=== PATIENT | male | born 1960 | race Caucasian/White ===

== ENCOUNTER 2019-09-15 11:18 | Inpatient (IN) | payer OTHER ==
[~2019-09-15] VITALS: Ht 182.9 cm; Wt 108.2 kg
[2019-09-15 10:50] VITALS: BP 161/101
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
[2019-09-15] MEDS ORDERED: LAC-HYDRIN FIV226 GM TOP (16:07)
[2019-09-15] MEDS ORDERED: LIPITOR10 MG PO (16:11)
[2019-09-15] MEDS ORDERED: CARVEDILOL12.5 MG PO (16:14)
[2019-09-15] MEDS ORDERED: FLEXERIL PO (16:18)
[2019-09-15] MEDS ORDERED: DIVALPROEX SOD250 M3 PO ×2 (16:21→16:23)
[2019-09-15] MEDS ORDERED: ARICEPT10 M1 PO (16:24)
[2019-09-15] MEDS ORDERED: LISINOPRIL2.5 M1 PO (16:27)
[2019-09-15] MEDS ORDERED: SEROQUEL 25 MG25 MG PO (16:29)
[2019-09-15] MEDS ORDERED: NAMENDA 10 MG T10 MG PO (16:31)
[2019-09-15] MEDS ORDERED: FISH OIL 1,001000 M3 PO (16:33)
[2019-09-15] MEDS ORDERED: THERA TABLET400 MCG PO (16:37)
[2019-09-15] MEDS ORDERED: TRAMADOL 50 MG50 MG PO (16:39)
[2019-09-15] MEDS ORDERED: VITAMIN B-1100 M2 PO ×2 (16:41→16:43)
[2019-09-15] MEDS ORDERED: VITAMIN C500 M1 PO (16:44)
[2019-09-15] MEDS ORDERED: ACETAMINOPHEN-1 EAC2 PO (16:48)
--- NOTE | 2019-09-15 16:48 | NUR ---
Sw attempted to meet with this pt while he was in the group room. Pt is not av very good historian, and unable to answer for his intake assessment.
[2019-09-15] MEDS ORDERED: VITAMIN B-121000 MC2 PO (17:08)
[2019-09-15 18:10] VITALS: BP 194/138
[2019-09-15 18:15] VITALS: BP 163/102
[2019-09-15 18:25] VITALS: BP 158/110
[2019-09-15 20:33] VITALS: BP 153/110
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
[2019-09-16 07:12] VITALS: BP 146/86
[2019-09-16 11:36] VITALS: BP 146/86
--- NOTE | 2019-09-16 11:50 | NUR ---
ASSUMED CARE AT 0700 THIS MORNING. HE IS IRRITABLE, CONTINUALLY LOOKING FOR HIS MOTHER, WANTED TO "GET THINGS DONE" ON THE OUTSIDE. SHE CONTINUALLY QUESTIONS WHAT IS GOING ON. SISTER CALLED AND WANTED TO KNOW HOW PT. IS DOING. SHE PROVIDED MOTHERS PHONE NUMBER. HE IS NOT ACCEPTING ANSWERS FROM STAFF. HE IS EATING WELL, TOOK HIS MEDICATIONS WITHOUT DIFFICULTIES (WHOLE).
--- NOTE | 2019-09-16 14:19 | NUR ---
LIZZ called Richy Harris pt's sister and DPOA [phone] and left a VM. LIZZ completed the intake assesmnet and TP with chart review
--- NOTE | 2019-09-16 16:32 | NUR ---
LIZZ spoke with pt's sister Shannan [phone] and she reported that [facility]. She reported that pt cycles through his behaviors every 3-6 months, this includes aggression and outbursts. Shannan mentioned that he sees Dr Cole from and Dr Danielle at [facility]. And there is a tele health is 09/21 at 9:45 am.
[2019-09-16 19:43] VITALS: BP 157/83
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
--- NOTE | 2019-09-17 03:09 | NUR ---
ASSUMED CARE ON 09/16/19 @ 19:15, AMBULATES INDEPENDENTLY WITH A STEADY GAIT. SPOKE TO ON THE PHONE AND HE WAS YELLING AT HER. CONFUSED AND NEEDS DIRECTION TO ACOMPLISH BASIC CARES. URINATES ON THE FLOOR IN PUBLIC AREAS. OCCASIONALLY INCONTINENT. HEART RATE AND RHYTHM REGULAR. LUNGS CLEAR TO AUSCULTATION, ABD SOUNDS NORMOACTIVE X 4 Q OVER A LARGE ROUND ABDOMEN. IN BED AFTER 2300, BED IN LOW POSITION, RESPIRATION EVEN AND UNLABORED. NO DISTRESS NOTED, WILL CONTINUE TO MONITOR Q 12 MIN FOR PT SAFETY.
[2019-09-17 05:32] VITALS: BP 157/83
[2019-09-17 08:00] VITALS: BP 112/79; BP 125/70
[2019-09-17 11:11] VITALS: BP 157/83
--- NOTE | 2019-09-17 11:18 | NUR ---
ASSUMED CARE AT 0700 THIS MORNING. PT. AWAKE, ALERT AND ON THE UNIT FOR MEALS AND FOR MOST OF THE DAY. PT. TOOK HIS MORNING MEDICATIONS WITHOUT PROBLEMS NOTED. HE HAS BEEN PLEASANT AND COOPERATIVE WITH THIS STAFF. HE CONTINUES TO HAVE A FLAT AFFECT BUT HE IS CALM. HIS SISTER CALLED AND INQUIRED TO HOW THE PT. IS DOING. HE WAS INFORMED OF THE SAME.
[2019-09-17 19:00] VITALS: BP 125/73
--- NOTE | 2019-09-17 19:18 | NUR ---
Care of patient assumed at 1915. Patient is in the day room sitting at a table. Oriented to self only. Doesn't know where he is, what day it is, or why he is here. Thinks that everything was just taken away from him and he was locked up for no reason. Very tangetial. Seems to jump from topic to topic but frequently returns to his mom not being able to see him because of COVID precautions. Very diorganized. HS, LS, BS WNL. Denies pain. Denies SI/HI. Compliant with HS meds. Requires repeated orientation to his room in order to find his bed.
[2019-09-18 07:40] VITALS: BP 113/74
--- NOTE | 2019-09-18 07:47 | NUR ---
ASSUMED CARE AT 0800 THIS MORNING. HE IS UP, DRESSED AND IN THE DINING ROOM. HE IS PLEASANT AND COOPERATIVE THIS MORNING AT THIS POINT.
[2019-09-18 13:32] VITALS: BP 113/74
[2019-09-18 19:53] VITALS: BP 122/93
[2019-09-18 22:33] VITALS: BP 122/93
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
[2019-09-19 07:38] VITALS: BP 114/76
--- NOTE | 2019-09-19 16:55 | NUR ---
DYSPHORIC MOOD UPON INITAL APPROACH THIS AN-ANGRY FACIAL EXPRESSION AND BRIEF,ABRUPT VERBAL RESPONSES. DID TAKE AM MEDICATIONMS WITHOUT RESISTANCE-SITS APART FROM [facility]ERS AND NO OTED SOCIAL INTERACTION THROUGHOUT AM. MORE VERBAL IN PM AFTER STAFF ASSSITED WITH SHOWER-NOTED TO HAVE WORD FINDING DIFFICULTY-EXPRESSIVE APHASIA -CONVERSATION AFTER SHOWER AND SHAVE WAS FOCUSED ON MOTHER AND HOW SHE HAS "JUST LEFT ME" ORIENTED TO PERSON,NO TO DATE/PLACE. GAIT STEADY WITHOUT ASSISTIVE DEVICES. BP CHECKED MANUALLY AT 1630 138/88
--- NOTE | 2019-09-19 17:12 | NUR ---
LIZZ left ms with [facility] informing of plan to discharge patient on 09/20 or 09/21. LIZZ asked for a return call to LIZZ Davis to further discuss dc plan.
[2019-09-19 19:37] VITALS: BP 98/77
[2019-09-19 20:00] VITALS: BP 98/77
--- NOTE | 2019-09-19 22:06 | NUR ---
PATIENT GIVEN TYLENOL 650MG WITH HS MEDS FOR MID BACK ACHE 08/20. PATIENT IS SLEEPING IN BED AT THIS TIME. HE APPEARS RELAXED AND RESPIRATIONS ARE EVEN AND UNLABLORED. BEFORE BED PATIENT MOVED TO SIT AT A TABLE WITH AN OLDER FEMALE PATIENT THAT IS CONFUSED AND WITH DEMENTIA. HE CARRIED ON A CONVERSATION WITH HER AND WAS KIND AND GENTLE IN HIS APPROACH WITH HER. THEIR THOUGHTS WERE UNORGANIZED BUT THEY WOULD SPEAK TO EACH OTHER AND AGREE AND COMMENT ON WHAT EACH OTHER SAID. PATIENT WAS ACTUALLY SMILING AND RELAXED TALKING TO PATIENT. PATIENT WAS ABLE TO TELL ME THAT HIS BACK WAS ACHING AND AGREED TO TAKE THE TYLENOL 650MG PO. HE DID REFUSE HIS MEMANTINE 10MG TONIGHT BUT AFTER 3 ATTEMPTS WAS ABLE TO GET HIM TO AGREE TO TAKE THE REST OF HIS MEDS. HE TOOK THEM WHOLE WITH WATER. HE DIDN'T LIKE TAKING 4 DEPAKOTE SPRINKLES BUT HE DID TAKE THEM EASIER THAN THE BIG PILLS CUT IN TWO. WHEN I TOLD PATIENT THAT HIS SISTER REINA HAD CALLED TO CHECK ON HIM, HE LIT UP AND SAID "OH GOOD. THINGS ARE FINALLY STARTING TO WORK OUT." I TOLD HIM THAT SHE IS WORKING TO TRY TO GET THINGS READY FOR WHEN HE IS ABLE TO LEAVE. HE SAID HE WAS HAPPY ABOUT THAT. PATIENT DID GET UP AND GO TO BED ON HIS OWN TONIGHT. HE IS PLEASANT MOOD AT BEDTIME. HE STATES BACK IS STARTING TO EASE UP. NO AGGRESSION SHOWN TONIGHT. NO SI/HI/AVH. CONTINUING TO ROUND TO ASSESS FOR STATUS AND SAFETY OF PATIENT.
--- NOTE | 2019-09-20 05:52 | NUR ---
PATIENT AWOKE AND CAME OUT OF HIS ROOM AROUND 0520. HE WAS WALKING IN THE MIDDLE OF THE HAYES WAY WITHOUT A SHIRT ON. HE APPEARED CONFUSED. APPROACHED PATIENT AND HE SAID HE DIDN'T KNOW WHAT HE WAS DOING OUT THERE. ASSISTED PATIENT BACK TO HIS ROOM AND APPLIED A CLEAN WHITE SHIRT. PATIENT CHOSE TO LAY BACK DOWN AND REST SOME MORE BEFORE GETTING UP FOR THE DAY. PATIENT STATES THAT HE THINKS HE IS TO GO SOMEWHERE TODAY. HE SAYS HE NEEDS TO SEE HIS MOM. HE WANTS TO SPEAK WITH THE DOCTOR TODAY TO SEE WHEN HE CAN LEAVE. HE STATES HE MISSES HIS MOM. PATIENT KEPT ASKING, "WHAT DID I DO WRONG?" TOLD HIM WHAT BROUGHT HIM HERE AND THAT HE IS DOING A LOT BETTER AND SHOULD BE LEAVING IN THE NEXT DAY OR TWO. PATIENT IS A/0X1, CONFUSED, AND FORGETFUL. PATIENT SLEPT WELL LAST NIGHT.
[2019-09-20 07:43] VITALS: BP 137/85
--- NOTE | 2019-09-20 10:32 | NUR ---
LIZZ called [facility] and left a VM with Jade in admissions that pt would likely d/c back there on . Updates had been sent on Thursday and LIZZ will send more tomorrow AM.
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
[2019-09-20 20:13] VITALS: BP 127/54
[2019-09-20 20:30] VITALS: BP 127/54
--- NOTE | 2019-09-21 01:29 | NUR ---
PATIENT WAS UP ON PHONE WITH HIS MOM WHEN I CAME ON SHIFT TONIGHT AT 1845. HE WAS TALKING TO HER AND VERY FRUSTRATED AND ESCULATING HE SPOKE TO HER. HE WAS ABLE TO CALM HIMSELF AND SAT IN DINING ROOM AND WATCHED TV AFTER THAT. ON ASSESSMENT HE WAS CALM. HE DENIED PAIN. DENIES SI/HI/AVH. PATIENT'S ABDOMEN WITH HYPOACTIVE BOWEL SOUNDS X 4. ABDOMEN ROUND AND FIRM. PATIENT DID NOT HAVE BM TODAY. HE ATE ICECREAM FOR HS SNACK AND I PLACED HIS DEPAKOTE SPRINKLES IN IT AND MIXED IT WITHOUT HIS AWARENESS. THIS CAUSED HIM TO HAVE LESS MEDS TO TAKE AT HS SO HE TOOK HIS OTHER MEDS WITHOUT COMPLAINT TONIGHT. PATIENT IS A/0X1. HE WAS PLEASANT AND COOPERATIVE TONIGHT. HE DOES LIKE TO HELP OUT AND HELP OTHERS. HE WAS PICKING UP OTHERS TRASH FROM SNACKS TONIGHT AND THROWING THEM AWAY. DISTRIBUTION OPERATION SUPERVISOR'S AND ME THANKED HIM FOR HIS HELP. HE SEEMED CONTENT WITH THIS. PATIENT CAME TO HIS ROOM TONIGHT BUT HAD TO BE DIRECTED STEP BY STEP ON HOW TO SIT ON HIS BED. HE COULD NOT FIGURE OUT HOW TO GET INTO HIS BED. HE STATED THAT HE FELT STUPID BUT HE JUST COULDN'T REMEMBER HOW TO GET IN. PATIENT WAS ASSISTED TO BED THRU DIRECTIONS VERBALLY. PATIENT IS SLEEPING AT THIS TIME. BED IN LOW POSITION AND ROUTINE ROUNDING FOR ASSESSMENT OF STATUS AND SAFETY OF PATIENT.
[2019-09-21 07:40] VITALS: BP 120/71
--- NOTE | 2019-09-21 09:45 | NUR ---
Lab called with COVID results. The results were negative.
--- NOTE | 2019-09-21 12:56 | NUR ---
LIZZ called Richy and reported to her that pt was d/c 09/21 at 11 am. LIZZ set up transportation with [employer] It was requested that pt's medcial records be sent earlier so that SHIRLEY and his Dr will be present for a tele conference.
--- NOTE | 2019-09-21 13:55 | NUR ---
SW faxed the neg COVID 19 test results
[2019-09-21 18:37] VITALS: BP 120/71
[2019-09-21 19:32] VITALS: BP 139/90
--- NOTE | 2019-09-21 23:51 | NUR ---
Care assumed of patient at 1915: Patient seated in dayroom, watching TV, at start of shift. Patient calm, pleasant and cooperative. Patient alert and oriented to person. Had some difficulty with word finding when asked questions. When given options of 3 different locations, patient was able to answer "hospital". Patient had an occasional smile. Was forgetful and confused at times. Continent of bowel and bladder. Patient denies SI/HI/AH/VH. Denies pain and discomfort. No delusional or paranoia behaviors observed. Patient ate 100% HS snack. Patient did become confused when taking HS medications and put them in his cup of water. Medications were able to be removed with a spoon and he was able to take them without difficulty. No aggression or agitation observed. Patient was able to retire to bed at a reasonable hour and fell asleep without difficulty. Patient resting quietly at this time.
[2019-09-22 07:15] VITALS: BP 122/77
[2019-09-22] MEDS ORDERED: QUINU5 PD PO (09:07)
[2019-09-22] MEDS ORDERED: DEPAKOTE SPRIN125 MG PO (09:08)
[2019-09-22] MEDS ORDERED: SEROQUEL 100 M100 M1 PO ×2 (09:08)
--- NOTE | 2019-09-22 09:35 | NUR ---
ELSI made packet and left it on the chart. ELSI set up transportation for 11 am. Elsi faxed the d/c summary and orders to [facility].
--- NOTE | 2019-09-22 11:41 | NUR ---
ATTEMPTED TO CALL REPORT TO [facility] -NO NURSING STAFF AVAILABLE SO MESSAGE LEFT TO RETURN CALL. PT BELONGINGS SECURED AND CHECKED AGAINST ADMIT INVENTORY-ASSISTED WITH DRESSING AND PLACED IN WC-ACCOMNPNIED TO VAN BY NURSING STAFF. DENIES SI/SH/HI AT TIME OF DC-SMILING BROADLY AND DENIES C/O PAIN/DISCOMFORT AT TIME OF DC.
--- NOTE | 2019-09-24 00:38 | D ---
[facility] [place] [address] DISCHARGE SUMMARY Name: MARCELINO HARRIS Room #: 528A-A [facility] IN ..#: [id number] Admission: 09/15/19 Attend Phys: Juan Rick DO Discharge: 09/22/19 Date of : 60 Report #: [id number] THIS REPORT FOR: cc: MAIRA - Family physician unknown FAM - Family physician unknown Juan Rick DO ~ THIS REPORT FOR: //name// CC: Juan RAO unknown DATE OF SERVICE: 09/22/2019 INPATIENT PSYCHIATRIC DISCHARGE SUMMARY ATTENDING PHYSICIAN: Juan Rick DO. SQL DEVELOPER DBA: Parker Lobo MD. DISCHARGE DIAGNOSES: Major neurocognitive disorder, likely multifactorial; alcoholism and possible Alzheimer disease with behavioral disturbance. MEDICAL COMORBIDITIES: As follows: Hypertension, hyperlipidemia, obesity, BMI 32.3. DISCHARGE PLAN: The patient is discharging back to [facility] for memory care. DISCHARGE DIET: Regular. ACTIVITY LEVEL: As tolerated. The patient requires 24/7 supervision. DISCHARGE MEDICATIONS: As follows: Lisinopril 5 mg p.o. daily for hypertension; Depakote Sprinkles 750 mg p.o. b.i.d., he did have a blood level in the 50s, which before increased was at 500 p.o. b.i.d., so should have a repeat blood level early a.m. on 09/26/2019. Script was given for that with discharge materials. Seroquel 100 mg p.o. b.i.d. for psychosis, 100 mg p.o. q. 6 p.r.n. for agitation, atorvastatin 10 mg p.o. at bedtime for hyperlipidemia, carvedilol 12.5 mg p.o. b.i.d. for cardioprotection, donepezil 10 mg p.o. at bedtime for cognitive enhancement, memantine 10 mg p.o. b.i.d. for cognitive enhancement, cyanocobalamin 1000 mcg p.o. every other day for supplementation. LABORATORY DATA: The patient's laboratories this admission, Depakote level was 53 on 09/19/2018. COVID-19 PCR was negative. [address] [address] DISCHARGE SUMMARY Name: MARCELINO HARRIS Room #: 528A-A [facility]#: [id number] Admission: 09/15/19 Attend Phys: Juan Rick, Discharge: 09/22/19 Date of : 60 Report #: [id number] REASON FOR ADMISSION: Back on 09/15/2019, 59-year-old male sent from [facility] via [facility]. Apparently, there was agitation. He had been waking up in the evenings, becoming particularly agitated for male nurse who was not present. There were also issues with him allegedly shadowboxing and breaking the mirror when he did not recognize himself. HOSPITAL COURSE: The patient was admitted to Geriatric Psychiatry Unit. The patient's Depakote level was increased to 500 b.i.d. and level came back at 53. It was then increased to 750 b.i.d. with level to be done outpatient. There were some delusions. He kept asking at times where his parents were- showing he did not understand they were . We elected to go ahead and started him on Seroquel that was titrated to 100 mg p.o. b.i.d. At the time of discharge, the patient was eating and sleeping well, felt to be ready for step down. PHYSICAL EXAMINATION: VITAL SIGNS: Temp 36.7, pulse 79, respirations 16, BP 122/77, O2 sat 98%. MUSCULOSKELETAL: Normal gait and station. MENTAL STATUS EXAMINATION: This is a well-developed, well-nourished, obese male, appearing stated age. Attention limited. Concentration limited. Speech is normal rate. Thought process linear and limited. Thought content, relative poverty of thought. No psychomotor agitation. No psychomotor retardation. Denied SI or HI. Denied hopelessness, helplessness. Denied auditory, visual, or tactile hallucinations. Memory noted to be impaired. Insight limited. Judgment impaired. Fund of knowledge below average. PROGNOSIS: For this patient is guarded given his age of 59, roughly 8-year history of having neurodegenerative disorder. <ELECTRONICALLY SIGNED> By: Juan Rick DO 09/24/19 0038 51 28 Juan Rick DO /nt
== END 2019-09-22 11:30 | DRG 57 ==
LOC: SBH 11:18
PROVIDERS: ADMIT Psychiatry & Neurology Psychiatry; ATTEND Psychiatry & Neurology Psychiatry
DX: G30.9 Alzheimer's disease, unspecified (principal); F02.81 Dementia in other diseases classified elsewhere, unspecified severity, with behavioral disturbance; I11.0 Hypertensive heart disease with heart failure; F01.51 Vascular dementia, unspecified severity, with behavioral disturbance; E78.5 Hyperlipidemia, unspecified; E66.9 Obesity, unspecified; I50.9 Heart failure, unspecified; F10.20 Alcohol dependence, uncomplicated; Y90.9 Presence of alcohol in blood, level not specified; Z68.32 Body mass index [BMI] 32.0-32.9, adult; Z03.818 Encounter for observation for suspected exposure to other biological agents ruled out
CPT/HCPCS: 10880

== ENCOUNTER 2020-01-10 13:06 | Inpatient (IN) | payer OTHER ==
[~2020-01-10] VITALS: Ht 182.9 cm; Wt 109.2 kg
[~2020-01-10 13:06] MED LIST: ACETAMINOPHEN-1 EAC2 PO; ARICEPT10 M1 PO; CARVEDILOL12.5 MG PO; DEPAKOTE SPRIN125 MG PO; DIVALPROEX SOD250 M3 PO; FISH OIL 1,001000 M3 PO; FLEXERIL PO; LAC-HYDRIN FIV226 GM TOP; LIPITOR10 MG PO; LISINOPRIL2.5 M1 PO; NAMENDA 10 MG T10 MG PO; QUINU5 PD PO; SEROQUEL 100 M100 M1 PO; SEROQUEL 25 MG25 MG PO; THERA TABLET400 MCG PO; TRAMADOL 50 MG50 MG PO; VITAMIN B-1100 M2 PO; VITAMIN B-121000 MC2 PO; VITAMIN C500 M1 PO
[2020-01-10 13:09] VITALS: BP 122/77
[2020-01-10 13:49] LABS: ABSOLUTE NEUTROPHILS 3.7 thou/uL (1.4-8.2); BASOPHILS 0.8 % (0.0-2.0); EOSINOPHILS 3.5 % (0.0-3.0); HEMATOCRIT 41.6 % (42.0-52.0); LYMPHOCYTES 27.4 % (24.0-44.0); MCH 31.6 pg (26.0-34.0); MCHC 33.7 g/dL (28.0-37.0); MCV 93.8 fL (80.0-100.0); MONOCYTES 10.3 % (1.0-8.0); PLATELET COUNT 142 thou/uL (150-400); RBC 4.43 mil/uL (4.50-6.00); RDW 13.9 % (10.5-14.5); WBC 6.4 thou/uL (4.0-11.0)
[2020-01-10 14:00] LABS: URINE BILIRUBIN NEGATIVE (Negative); URINE BLOOD NEGATIVE (Negative); URINE CLARITY CLEAR; URINE COLOR YELLOW; URINE GLUCOSE-RANDOM* NEGATIVE (Negative); URINE KETONES TRACE (Negative); URINE LEUKOCYTES-REFLEX NEGATIVE (Negative); URINE NITRITE-REFLEX NEGATIVE (Negative); URINE PROTEIN (DIPSTICK) NEGATIVE (Negative); URINE SPECIFIC GRAVITY 1.015 (1.005-1.035)
[2020-01-10 14:17] LABS: CALCIUM 8.2 mg/dL (8.5-10.1); CREATININE 1.1 mg/dL (0.7-1.3); POTASSIUM 4.1 mmol/L (3.5-5.1)
[2020-01-10 14:23] LABS: TOTAL BILIRUBIN 0.4 mg/dL (0.2-1.0); TOTAL PROTEIN 6.5 g/dL (6.4-8.2)
[2020-01-10] MEDS ORDERED: VITAMIN C500 M1 PO (16:23)
[2020-01-10 16:25] VITALS: BP 95/70
[2020-01-10 16:43] VITALS: BP 104/74
--- NOTE | 2020-01-10 17:48 | NUR ---
59 YEAR OLD MALE ARRIVES TO FLOOR VIA WC FROM ER-REPORTED BY ER STAFF TO HAVEW ARRIVED FROM [facility] AND BEEN REPORTED TO BE AGGRESSIVE WITH NURSING STAFF-PULLING HAIR-RAISED FIST-REFUSING LABS,VS AND MEDICATIONS. ANGRY FACIAL EXPRESSION DURING ADMIST INTERVIEW-REFUSES TO COME INTO ROOM AND INITITALLY REFUSES VS ELECTING TO BULLDOGGER HALLWAY. ORIENTED TO NAME ONLY. STATES HE DOES NOT KNOW WHY HE IS HERE, GAIT IS STEADY WITHOUT ASSISITVE DEVICES. SISTER KAREN RIVERA CONTACTED AND DID GIVE Additional INFO STATES AGITATION AT CARE HOME INCREASED APPROPX 1 WK AGO AFTER MOTHER VISITED HIM AT [place]. DID EVENTUALLY ALLOW RN ON UNIT TO DO VS AND ARE WNL. DENIES PAIN OR DISCOMFORT. DR MENDEZ ON FLOOR TO SEE PT DID SIT IN DAYROOM TO EAT SUPPER
[2020-01-10 17:54] VITALS: BP 116/80
[2020-01-10 20:30] VITALS: BP 116/80
--- NOTE | 2020-01-11 02:28 | NUR ---
PATIENT SAT OUT IN DINING ROOM WATCHING TV TONIGHT. HE WAS QUIET UNLESS ASKED A QUESTION. HE HAD FLAT AFFECT. HE IS A/0X1. HE HAS BEEN CALM BUT IS RESISTANT WITH MEDS. HE WAS UNABLE TO FOLLOW DIRECTIONS SUCH "PUT THESE PILLS IN YOUR MOUTH." HE PLAYED WITH THE PILLS AND THEN WOULD ASK, WHAT AM I SUPPOSED TO DO WITH THEM? i FINALLY HAD TO PLACE A COUPLE IN HIS MOUTH AT A TIME AND HAVE HIM TAKE A SIP OF WATER. PATIENT VERY FRUSTRATED ABOUT ALL THE MEDS HE HAS TO TAKE. HE STATES HE DOESN'T WANT TO BE HERE. HE STATES HE DOESN'T NEED ALL THESE MEDS. PATIENT DID TAKE THEM. ANOTHER PATIENT WAS HAVING BEHAVIORS TONIGHT AND GOT INTO THIS PATIENT'S SPACE AND WAS YELLING AT HIM. THIS PATIENT WAS CONFUSED BUT HE WAS ABLE TO KEEP HIS CALM AND NOT YELL BACK AT COMBATIVE PATIENT. COMBATIVE PATIENT WAS REMOVED FROM PATIENT'S SPACE. PATIENT WENT TO BED ON HIS OWN AT 2200. HE LAID IN BED WITH EYES OPEN FOR AWHILE. WHEN I WENT TO CHECK ON HIM, HE STATED THAT HE APPRECIATED ME BEING NICE TO HIM AND THAT THIS WAS A NICE PLACE. PT IS SLEEPING AT THIS TIME. HIS SISTER CALLED TO CHECK ON PATIENT STATUS WITH THIS NURSE BUT DID NOT SPEAK WITH PATIENT TONGINA. PATIENT IS INDEPENDENT TO THE BATHROOM AND IS STEADY WHILE AMBULATING. WILL CONTINUE TO MONITOR.
--- NOTE | 2020-01-11 07:42 | EKG ---
[facility] [place] [address] ELECTROCARDIOGRAM REPORT Name: MARCELINO HARRIS Room #: [facility] ADM IN M.R.#: [id number] Admission: 01/10/20 Attend Phys: Juan Rick DO Discharge: Date of : 60 Report #: [id number] THIS REPORT FOR: cc: DARIUSZ TAYLOR Physician not on staff Emre Saxena MD LOCATED WITHIN [facility] ~ THIS REPORT FOR: //name// [facility] Test Date: 2020-01-10 Test Time: 19:15:55 Pat Name: MARCELINO HARRIS Department: Room: 52 A Gender: M Database Developer: Bart VILLALOBOS : 1960 Requested By: Juan Rick Order Number: [id number] MD: Emre Saxena Measurements Intervals [place] Rate: 69 P: 65 ME: 174 QRS: 21 QRSD: 132 T: 71 QT: 420 QTc: 450 Interpretive Statements Sinus rhythm Nonspecific intraventricular conduction delay No previous ECG available for comparison Electronically Signed On 01-11-2020 7:42:19 CDT by Emre Saxena [email or web address] <ELECTRONICALLY SIGNED> By: Emre Saxena MD, LOCATED [facility] 01/11/20 0742 14 14 Emre Saxena MD, LOCATED [facility] /EPI
[2020-01-11 08:00] VITALS: BP 144/88
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
--- NOTE | 2020-01-11 17:48 | NUR ---
Assumed care of patient at 0700. Oriented to person. Hesitant to take medications at first but took medications with encouragement. Breath sounds clear, no cough, abdomen soft, bowel sounds active. Participating in activities but is not very verbal. No aggression or agitation. Eating meals by self. Ambu;atory. gait steady. Medication adherent throughout the day.
[2020-01-11 19:49] VITALS: BP 123/75
--- NOTE | 2020-01-12 02:42 | NUR ---
PATIENT ASSESSED AND IS ALERT X 1. SKIN WARM AND DRY. RESP EVEN AND UNLABORED. UP AD AUDI WALKING THE HALLWAY. IS COOPERATIVE IN CARES AND MED ADMINISTRATION. WALKED HIM TO ROOM AND PLACE IN BED. TAKEN TO BATHROOM, VOIDS WELL. NO SI/HI NOTED. LBM UNKNOWN. REMAINS SLEEPING IN BED. HEART RATE REGULAR. CONT TO MONITOR BEHAVIOR. CONT PLAN OF CARE.
--- NOTE | 2020-01-12 04:51 | NUR ---
PATIENT UP WALKING THE HALLWAY BECAUSE HE HAS A ROOMATE. SAID" THERE ARE TOO MANY PEOPLE IN THERE" REFUSES TO GO BACK TO BED. COOPERATIVE BUT REMAINS WALKING THE HALLS.
[2020-01-12 10:42] VITALS: BP 144/88
--- NOTE | 2020-01-12 15:50 | NUR ---
Assumed care of patient at 0745. Up in the dayroom. Calm and cooperative. Alert and oriented to person. Takes medication with encouragement. Ambulating about unit. Gait steady. Feeds self. Took one sock off and placed two socks on one foot. No cough, breath sounds clear, abdomen round, bowel sounds active. Participating in exercise group and afternoon music group. Minimal involvement. Sitting in dayroom. Denies pain.
--- NOTE | 2020-01-12 19:08 | NUR ---
Alert and orientated to name only. Occassionally makes coherent statements but mostly sat quietly. Denies SI/HI. Requires alot of direction with self cares. Currently sitting in day room with peers.
[2020-01-12 19:51] VITALS: BP 143/91
--- NOTE | 2020-01-13 01:46 | NUR ---
Care assumed of patient at 1915: Patient seated in dayroom at start of shift. Patient presents with flat, perplexed affect. Patient confused and disoriented. Alert and oriented x1. Calm and cooperative. No agitation or aggression observed. No exit seeking behaviors observed. Patient denies SI/HI/AH/VH. Denies depression and anxiety. Believes that we are at his home. Took HS medication whole without difficulty. Ate 100% HS snack. Patient denies pain and discomfort. Patient was able to walk to his room with stand by assist and lay in bed. Patient was able to fall asleep without difficulty and is resting quietly at this time.
[2020-01-13 07:53] VITALS: BP 127/79
--- NOTE | 2020-01-13 11:40 | NUR ---
Assumed care 0700. Denies complaints. Needs direction to find his room and restroom. Was found in the female room of a new patient next door. Many times does not answer questions asked.
--- NOTE | 2020-01-13 16:00 | NUR ---
Remains very confused. Does not initiate conversation. Denies SI/HI/AH/VH/pain. Needs frequent leading to his room for restroom use. Many times does not seem to comprehend what is being said to him.
--- NOTE | 2020-01-13 16:44 | NUR ---
ELIS contacted [facility] concering Pt d/c. Elsi also sent updates to [facility]. [facility] is unable to provide transportation for the Pt upon his d/c. ELSI set up transportation with [employer] for 01/16/2020 @ 1pm. ELSI called DPOA and informed of Pt's discharge back to [facility]
[2020-01-13 19:47] VITALS: BP 94/58
--- NOTE | 2020-01-13 23:34 | NUR ---
Care of patient assumed at 1915: Patient seated in dayroom at start of shift. Calm, pleasant and cooperative. Alert and oriented to person only. Confused and forgetful. Patient was able to answer yes/no questions appropriately this evening. Patient denied pain and discomfort. Denies anxiety and depression. Speech is slow but appears to be more organized. Denies SI/HI/AH/VH, unknown if he understands the meaning of questions, however. Patient took HS medication whole without difficulty. Ate 100% HS snack. Patient was assisted to bed. Patient had difficulty falling asleep this shift and was observed laying several different ways in bed. Patient did have difficulty comprehending use of the bathroom and needed moderate assist on using the toilet. Patient was fixated on the look of the toilet and floor, rather than using the bathroom. Patient was able to urinate and was continent. No exit seeking behaviors observed. No agitation or aggression observed. Patient is now resting quietly in bed.
[2020-01-14 07:39] VITALS: BP 107/64
--- NOTE | 2020-01-14 09:23 | NUR ---
Assumed care 0700. No voiced complaints of pain. Self fed breakfast eating quite fast most everythig except the oatmeal. When presented with his pills he just looked at them perplexed-seemingly not knowing how to put them in his mouth. Nurse had to put a couple of pills in a separate med cup and instruct him to tilt his head backwards, swallow and take water. It was determined he did not care for water and preferred apple juice with medications. He denied SI/HI/AH/VH. He dozed during RT group with his head down.
--- NOTE | 2020-01-14 13:51 | NUR ---
Patient withdraws into himself. He ate his sandwich but left the chips and angelfood cake and drink. Alternative foods and drinks were offered with no preferences made. During RT group he was prompted to open his eyes and participate. He intermittently participated. During snack time he woke up more to eat his snack. He does not initiate conversation.
[2020-01-14 19:42] VITALS: BP 109/73
--- NOTE | 2020-01-14 20:55 | NUR ---
Care assumed of patient at 1915: Patient seated in the dayroom at start of shift. Presents with flat affect, which appears to be baseline. However, patient did smile and interact more with nurse and peers this shift. When patient was asked how he was doing, he said "good, how are you?". Which is an improvement over the last 3 nights. Able to have more conversation. Clear speech, less disorganized thoughts. ALert and oriented to person only. When asked time, location, situation, patient smiled and stated "I guess I never pay attention to that." Patient denies pain or discomfort. Denies SI/HI/AH/VH. Denies depression and anxiety. Ate 100% HS snack. Patient was confused whe taking HS medication and kept moving them from hand to hand instead of swallowing them. After several re-directions, patient was able to take medication without further incident. No agitation, wandering or aggression observed. Currently seated in dayroom watching football at this time.
[2020-01-15 07:50] VITALS: BP 113/69
--- NOTE | 2020-01-15 13:36 | NUR ---
Faxed updates to [facility].
--- NOTE | 2020-01-15 17:57 | NUR ---
Assumed care 0700. Incontinent urine large amount in room inside and outside of bathroom door. Abdomen large/distended. Denies c/o pain. Does not comprehend questions of SI/HI/AH/VH. Does not omprehend or react appropriately to most of questions asked of him. It took about 25 minutes to get him to take his AM 0800/0900 medications. He refused his Carvedilol and BP check stating it was "too much." He dozed at intervals with his head on the table. Covid 19 test taken to lab early this AM.
[2020-01-15 19:26] VITALS: BP 109/86
[2020-01-16 01:04] VITALS: BP 109/86
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
[2020-01-16 07:46] VITALS: BP 152/78
[2020-01-16 19:31] VITALS: BP 98/57
--- NOTE | 2020-01-16 19:33 | NUR ---
1000 ASSUMED CARE OF PATIENT, PATIENT SITTING UP IN GERICHAIR SLEEPING. PATIENT SLEEPS OFF AND ON. PATIENT ONLY EATS A FEW BITES OF LUNCH AND DINNER WITH ASSISTANCE. PATIENT IS CALM WITH NO BEHAVIORS NOTED.
[2020-01-17 01:50] VITALS: BP 98/57
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
--- NOTE | 2020-01-17 08:25 | NUR ---
RT Progress Note- Alexis has not been active in the milieu or group therapy throughout much of this review period. He often falls asleep through interaction which makes task completion difficult. He does not often interact with peers and offers little verbal socialization at this time. When alert, Alexis does appear to enjoy music as he has danced along. RT staff will continue to encourage interactions in groups and the milieu.
--- NOTE | 2020-01-17 08:29 | NUR ---
PT SITTING IN DINING ROOM. PT TOOK MEDS CRUSHED IN YOGART. PT STATED HE DIDN'T LIKE THE YOGART. MIXED YOGART IN ICE CREAM AND PT DID TAKE MIXED IN ICE CREAM. PT FEED SELF THIS AM. PT DID HAVE JERKING MOVEMENTS TO ARMS AT TIMES.
[2020-01-17 08:30] VITALS: BP 116/72
[2020-01-17 09:19] VITALS: BP 116/72
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
--- NOTE | 2020-01-17 11:00 | NUR ---
PT GETTING UP OUT OF CHAIR. GAIT IS NOT THAT STEADY. PT WAS EASILY DIRECTED TO SIT BACK DOWN INTO THE CHAIR. PULLED CHAIR UP TO TABLE FOR LUNCH.
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
--- NOTE | 2020-01-17 16:40 | NUR ---
PT ALLOWED THIS ASTROCHEMIST TO CHECK BP PRIOR TO COREG. PT BP 91/59 AND PULSE 77.
--- NOTE | 2020-01-17 17:31 | NUR ---
PT DID WALK AROUND IN DINING ROOM WITH AND WITHOUT A WALKER. PT SITTING TO EAT DINNER AT THIS TIME.
[2020-01-17 19:53] VITALS: BP 101/58
--- NOTE | 2020-01-18 01:02 | NUR ---
Care of patient assumed at 1915: Patient seated quietly in dayroom at start of shift. Perplexed affect. Alert and oriented to person only. Rather calm and cooperative. Denied pain or discomfort. Denied SI/HI/AH/VH. No aggression or agitation observed. No s/s of delusional or paranoia behaviors observed. Took HS medication crushed without difficulty. Was able to speak clearly and asked for apple juice. Ate 100% HS snack. Patient started to become increasingly restless by fidgeting, trying to move furniture, standing without assist. HEMANT Bella, notified. Order obtained for Trazodone 50mg po qHS PRN. Medication administered. Approximately 30 minutes later, patient started to become more paranoid, startled easily, swinging arms at staff that come near him, yelling "get me out of here!". Was able to be frequently re-directed, at a safe distance, and close eyes and appear calmer. Appears that patient tries to fall asleep, looks tired, then starts to mumble as if he is talking to someone, disorganized, unsure of what he is saying. Patient then urinated on the floor. Patient required mod assist x2 for bárbara care and linen change due to impulsive behaviors and trying to hit staff. Patient was able to be assisted to bed for approximately 15 minutes where he appeared to be laying quietly. Patient then attempted to get out of bed independently. Assisted to livier chair and brought back to dayroom for increased observation. Patient less aggressive at this time but appears to be experiencing hallucinations by looking around the room and speaking to unseen others and by trying to touch unseen things in the air and on the table. Patient is opening his mouth and appears to be eating/licking something at this time.
[2020-01-18 07:27] VITALS: BP 107/85
[2020-01-18] MEDS ORDERED: SEROQUEL 100 M100 M1 PO ×2 (12:20→12:21)
[2020-01-18] MEDS ORDERED: SEROQUEL 25 MG25 M1 PO ×2 (12:21)
[2020-01-18] MEDS ORDERED: B-12500 MCG PO (12:22)
--- NOTE | 2020-01-18 13:48 | NUR ---
Assumed care 0700. Patient up in dayroom in recliner. Denies SI/HI/AH/VH. Has episodic flinches/twitches of his upper extremities. He does not know what causes that. Alert, oriented to person only. questionable if he comprehends SI, HI,AH, VH. At times he talks to himself. At lunch time he was taken to his room in recliner due to having a positive Coved test. Plans are to move him to another unit as soom as a bed becomes available. He is in his room for now currently in bed with bed alarm on. Denies complaints/concerns/goals. Does not offer conversation to staff or peers.
[2020-01-18 19:46] VITALS: BP 116/58
[2020-01-19] MEDS ORDERED: SEROQUEL 100 M100 M1 PO ×2 (09:13)
[2020-01-19] MEDS ORDERED: ARICEPT10 M1 PO (09:14)
[2020-01-19] MEDS ORDERED: VITAMIN B-1100 M2 PO (09:15)
[2020-01-19] MEDS ORDERED: NAMENDA 10 MG T10 MG PO (09:15)
[2020-01-19] MEDS ORDERED: ACCUPRIL5 MG PO (09:15)
[2020-01-19] MEDS ORDERED: VITAMIN C500 M2 PO (09:16)
[2020-01-19] MEDS ORDERED: B-121000 MC2 PO (09:17)
--- NOTE | 2020-01-19 16:29 | NUR ---
INITIAL ASSESSMENT: LIZZ reviewed chart and spoke with nursing and attending physician. Pt was admitted from [facility] unit due to COVID-19. Pt is in Enhanced Isolation. Pt is afebrile and not requiring O2. Pt normally lives at [facility]. LIZZ spoke with INGRIS Hansen at the facility, who states that their facility does not and has not had any COVID cases. Pt will need to be in isolation for 14 days, then retested prior to them admitting him back. Should pt's test still be positive in 14 days, they will consider taking hime back. Pt with hx of ETOH dementia and can become agitated and aggressive with staff. Per Jade, pt cooperates better with male staff. LIZZ notified pt's nurse to pass on to staff. SW to fax clinical info to [facility] for review. LIZZ spoke with pt's sister, Jackie, via phone. Introduced role of LIZZ. Jackie is agreeable with discharge plan. LIZZ is following to assist as needed with discharge planning.
== END 2020-01-18 21:10 | disposition short-term general hospital (02) | DRG 896 ==
LOC: ER 13:06 → SBH 16:07 → EROBS 16:07 → SBH 17:32
PROVIDERS: Physician Assistant; ADMIT Psychiatry & Neurology Psychiatry; ATTEND Psychiatry & Neurology Psychiatry
DX: F10.27 Alcohol dependence with alcohol-induced persisting dementia (principal); F01.51 Vascular dementia, unspecified severity, with behavioral disturbance; U07.1 COVID-19; I11.0 Hypertensive heart disease with heart failure; I42.9 Cardiomyopathy, unspecified; E44.0 Moderate protein-calorie malnutrition; E78.5 Hyperlipidemia, unspecified; E66.9 Obesity, unspecified; F10.20 Alcohol dependence, uncomplicated; Y90.9 Presence of alcohol in blood, level not specified; I50.9 Heart failure, unspecified; Z79.899 Other long term (current) drug therapy; Z87.891 Personal history of nicotine dependence; Z68.32 Body mass index [BMI] 32.0-32.9, adult; Z95.0 Presence of cardiac pacemaker
CPT/HCPCS: 10880

== ENCOUNTER 2020-01-18 18:43 | Inpatient (IN) | payer OTHER ==
[~2020-01-18 18:43] MED LIST changes: +B-12500 MCG PO; +SEROQUEL 25 MG25 M1 PO
[2020-01-18 21:05] VITALS: BP 121/65
--- NOTE | 2020-01-18 23:00 | NUR ---
PT ADMITTED FROM [facility]. PT SEDATED RECENT GEODON IM INJECTION FOR AGITATION COMBATIVE HISTORY. PT RESTING IN BED, BED ALARM ON. PT WAS NOT COMBATIVE WITH VS AND ASSESSMENT.
--- NOTE | 2020-01-19 01:11 | NUR ---
PROVIDER DRUM WORKER NOTIFIED OF ADMISSION.
--- NOTE | 2020-01-19 04:33 | NUR ---
PT AWAKENED, EXITED BED. WAS NOT FOLLOWING VERBAL REDIRECTION. PT STATED HE DID NOT HAVE COVID, PT WAS ATTEMPTING TO LEAVE HIS ROOM, STATED HE WAS NOT IN THE HOSPITAL . PT WAS COMBATIVE TOWARDS NURSE WHO ANSWERED ALARM, ASSISTANCE CALLED FOR AND PT RETURNED TO BED MUMBLING TO SELF. PROVIDER CALLED AND PRN ORDER OBTAINED AND ADMINISTERED. BED ALARM ON.
--- NOTE | 2020-01-19 06:31 | NUR ---
PT AMBULATED TO DOOR, WOULD NOT VERBALLY REDIRECT TO RESTROOM. PT URINATED ON DOOR AND CLOSET AND CLOTHES. PT WAS COMPLIANT WITH CLOTHES AND SOCK CHANGE AND RETURNED TO BED. ALARM ON.
[2020-01-19 07:04] VITALS: BP 118/80
[2020-01-19] MEDS ORDERED: SEROQUEL 100 M100 M1 PO ×2 (09:13)
[2020-01-19] MEDS ORDERED: ARICEPT10 M1 PO (09:14)
[2020-01-19] MEDS ORDERED: VITAMIN B-1100 M2 PO (09:15)
[2020-01-19] MEDS ORDERED: NAMENDA 10 MG T10 MG PO (09:15)
[2020-01-19] MEDS ORDERED: ACCUPRIL5 MG PO (09:15)
[2020-01-19] MEDS ORDERED: VITAMIN C500 M2 PO (09:16)
[2020-01-19] MEDS ORDERED: B-121000 MC2 PO (09:17)
[2020-01-19 15:42] VITALS: BP 112/72
--- NOTE | 2020-01-19 16:50 | NUR ---
PT RETED IN BED FOR MOST OF SHIFT AND REMAINS CONFUSED BUT NONVIOLENT AT THIS TIME. PILLS GIVEN IN PUDDING AND PT TOLERATED WELL. PT REFUSED MRSA PCR THIS EVENING. [facility] TO ASSESS.
[2020-01-19 19:01] VITALS: BP 127/66
--- NOTE | 2020-01-19 23:07 | NUR ---
PT ASLEEP IN BED, EASILY AWAKENED TO TAKE HS MEDS AND SNACK. GOOD EYE CONTACT, BLUNTED AFFECT. MUMBLED SPEECH. COMPLIANT WITH CARES. BED ALARM ON. DRY COUGH NOTED.
--- NOTE | 2020-01-20 01:34 | NUR ---
PT RESTLESS FREQUENTLY GETTING OOB, PACING, ATTEMPTING TO LEAVE HIS ROOM, TAKING GOWN OFF TAKING SHEETS OFF. NOT ABLE TO BE VERBALLY REDIRECTED. BED ALARM ON. PROVIDER NOTIFIED.
[2020-01-20 03:47] VITALS: BP 139/79
--- NOTE | 2020-01-20 05:05 | NUR ---
PT RESTLESS FREQUENTLY GETTING OOB, HOLDING HIS PENIS, PT OFFERED URINAL NOT ABLE TO URINATE. PT TAKEN TO TOILET TO STAND AND ASSISTED TO SIT DOWN, PT DID NOT URINATE. BLADDER SCAN 386. PROVIDER NOTIFIED. ORDER RECEIVED FOR STRAIGHT CATH AND UA/C/S. SAMPLE OBTAINED. PT HAD 900 RUBI U.O.
--- NOTE | 2020-01-20 05:55 | NUR ---
PT AMBULATING IN ROOM. STEADY GAIT NOT FOLLOWING REDIRECTION TO REST IN BED.
[2020-01-20 06:16] LABS: HEMATOCRIT 38.9 % (42.0-52.0); HEMOGLOBIN 12.9 gm/dL (14.0-18.0); MCH 31.4 pg (26.0-34.0); MCHC 33.3 g/dL (28.0-37.0); MCV 94.4 fL (80.0-100.0); PLATELET COUNT 118 thou/uL (150-400); RBC 4.12 mil/uL (4.50-6.00); RDW 13.7 % (10.5-14.5)
[2020-01-20 06:36] LABS: URINE BILIRUBIN NEGATIVE (Negative); URINE BLOOD 1+ (Negative); URINE CLARITY CLEAR; URINE COLOR YELLOW; URINE GLUCOSE-RANDOM* NEGATIVE (Negative); URINE KETONES TRACE (Negative); URINE PROTEIN (DIPSTICK) TRACE (Negative)
[2020-01-20 06:38] LABS: URINE LEUKOCYTES-REFLEX 1+ (Negative); URINE NITRITE-REFLEX POSITIVE (Negative)
[2020-01-20 06:39] LABS: CALCIUM 8.6 mg/dL (8.5-10.1); CREATININE 0.9 mg/dL (0.7-1.3); MAGNESIUM 1.9 mg/dL (1.8-2.4)
[2020-01-20 06:57] LABS: CASTS None Seen /LPF (None Seen); MUCUS >6 Heavy strn/LPF (None Seen); SQUAMOUS 0-3 Few /LPF (0-3)
[2020-01-20 06:59] LABS: CRYSTALS None Seen /LPF (None Seen); URINE RBC 0-2 Rare /HPF (0-2)
[2020-01-20 10:59] LABS: ABSOLUTE NEUTROPHILS 2.6 thou/uL (1.4-8.2); PLATELET ESTIMATE NORMAL
--- NOTE | 2020-01-20 15:10 | NUR ---
LIZZ reviewed chart and spoke with nursing and attending physician. Pt remains in Enhanced Isolation due to COVID-19. Pt is afebrile and not requiring O2. SW faxed clinical info and COVID test results to [facility] for review. No weekend discharge planned. LIZZ is following to assist as needed with discharge planning.
[2020-01-20 18:15] LABS: TSH 1.605 uIU/mL (0.358-3.740)
--- NOTE | 2020-01-20 18:16 | NUR ---
PATIENT CONT TO BE CONFUSED MOST OF THE TIME. NOTED TO URINATE ON THE FLOOR. NOT EASILY REDIRECTED. ASSIST TO BATHROOM BUT HE WILL NOT URINATE. .FORGETS TO EAT EVEN WHEN HE STARTS EATING. HE DOES NOT SEEM TO BE IN PAIN. WILL CON WITH PLAN OF CARE.
[2020-01-20 18:45] LABS: FOLIC ACID 19.9 ng/mL (8.6-58.9)
[2020-01-20 20:02] VITALS: BP 136/65
[2020-01-21 05:52] VITALS: BP 104/66
[2020-01-21 07:03] VITALS: BP 109/60
--- NOTE | 2020-01-21 07:29 | NUR ---
ASSUMED CARE AT 1900, ASSESSMENT COMPLETED. PT STRUGGLED WITH BASIC COMMANDS, WOULD SPEAK A FEW NONSENSICAL WORDS. COOPERATED WITH ASSESSMENT, TOOK OVER 10 MINUTES TO GET HIM TO TAKE PILLS CRUSHED IN AN ENTIRE PUDDING. URINATED ON FLOOR MULTIPLE TIMES OVERNIGHT. SPOKE W/ PT'S SISTER LORIN; SHE ASKED THAT DR. CLINE CALL HER REGARDING PT'S PYSCH MANAGEMENT/REGIMEN THAT SEEMS MORE A CONCERN FOR DISCHARGE. NO OTHER CONCERNS, SHIFT REPORT GIVEN AT 0700.
[2020-01-21 09:06] LABS: HEMATOCRIT 36.6 % (42.0-52.0); HEMOGLOBIN 12.2 gm/dL (14.0-18.0); MCH 31.4 pg (26.0-34.0); MCHC 33.5 g/dL (28.0-37.0); MCV 93.9 fL (80.0-100.0); PLATELET COUNT 104 thou/uL (150-400); RBC 3.89 mil/uL (4.50-6.00); RDW 13.6 % (10.5-14.5); WBC 3.8 thou/uL (4.0-11.0)
[2020-01-21 09:24] LABS: CALCIUM 8.3 mg/dL (8.5-10.1); PHOSPHORUS 3.6 mg/dL (2.5-4.9); POTASSIUM 4.1 mmol/L (3.5-5.1)
[2020-01-21 14:36] LABS: ABSOLUTE NEUTROPHILS 2.1 thou/uL (1.4-8.2); METAMYELOCYTES 1 %
[2020-01-21 15:20] VITALS: BP 129/59
--- NOTE | 2020-01-21 18:32 | NUR ---
PATIENT HAS BEEN MUCH CALMER TODAY. NOTED TO HAVE URINATED ALL DAY. STRAIGHT CATH AND 400ML COLLECTED. HE HAS BEEN NOTED TO ROAM THE ROOM BUT SELDOM TRIES TO LEAVE ROOM. RESPIRATIONS ARE NON LABORED. WILL CONT WITH PLAN OF CARE.
[2020-01-21 20:41] VITALS: BP 96/63
--- NOTE | 2020-01-21 21:55 | NUR ---
PT BECAME IRRITABLE DURING MED PASS, REFUSING TO TAKE BITES OF YOGURT W/ CRUSHED MEDS, EVEN TRYING TO INTERSPERSE W/ DRINKS OF TEA AND BITES OF PUDDING. BECAME PROGRESSIVELY MORE AGITATED; ONLY TOOK ABOUT 1/3 OF YOGURT W/MEDS IN IT BEFORE TOTALLY REFUSING. GAVE PRN IM HALDOL TO RIGHT DELTOID; PT VERY AGITATED AND BALLING FISTS AND JERKING AROUND WHILE GIVING INJECTION, CAUSED NEEDLE TO SLIP AND A PORTION OF MEDICATION WAS WASTED. WILL CONTINUE TO MONITOR.
[2020-01-22 01:16] LABS: URINE BILIRUBIN NEGATIVE (Negative); URINE BLOOD TRACE (Negative); URINE CLARITY CLEAR; URINE COLOR YELLOW; URINE GLUCOSE-RANDOM* NEGATIVE (Negative); URINE KETONES 1+ (Negative); URINE LEUKOCYTES-REFLEX NEGATIVE (Negative); URINE NITRITE-REFLEX NEGATIVE (Negative); URINE PROTEIN (DIPSTICK) NEGATIVE (Negative); URINE SPECIFIC GRAVITY 1.025 (1.005-1.035)
[2020-01-22 05:39] VITALS: BP 110/68
[2020-01-22 08:58] VITALS: BP 100/58
--- NOTE | 2020-01-22 11:49 | NUR ---
ASSUMED PATIENT CARE THIS AM AT APPROXIMATELY 0700. PATIENT RESTING IN BED THIS AM ABLE TO TOLERATE AM MEDS WITH VANILLA PUDDING/ ICE CREAM. PATIENT BECAME AGITATED WITH LAB DRAW AROUND NOON AND BEGAN KICKING AND BALLING FISTS. PATIENT ABLE TO SETTLE DOWN AFTER LAB DRAW. WILL CTM FOR INCREASED AGITATION
[2020-01-22 11:53] LABS: HEMATOCRIT 39.2 % (42.0-52.0); MCH 31.4 pg (26.0-34.0); MCHC 33.2 g/dL (28.0-37.0); MCV 94.5 fL (80.0-100.0); PLATELET COUNT 107 thou/uL (150-400); RBC 4.15 mil/uL (4.50-6.00); RDW 13.6 % (10.5-14.5); WBC 3.3 thou/uL (4.0-11.0)
[2020-01-22 12:01] LABS: CALCIUM 8.3 mg/dL (8.5-10.1); CREATININE 0.9 mg/dL (0.7-1.3); PHOSPHORUS 3.7 mg/dL (2.5-4.9); POTASSIUM 3.9 mmol/L (3.5-5.1)
[2020-01-22 12:46] LABS: ABSOLUTE NEUTROPHILS 1.3 thou/uL (1.4-8.2)
[2020-01-22 12:47] LABS: ANISOCYTOSIS SLIGHT
[2020-01-22 17:45] VITALS: BP 111/62
[2020-01-22 19:30] VITALS: BP 113/60
[2020-01-23 04:15] VITALS: BP 129/99
--- NOTE | 2020-01-23 06:30 | NUR ---
PT MAKING POOR PROGRESS TOWARDS GOALS. INITIALLY, PT DID ALLOW BLADDER SCAN WHICH WAS 302ML. THIS AM, PT WOULD NOT ALLOW BLADDER SCAN TO BE DONE. FREQUENT ENCOURAGEMENT WAS GIVEN FOR PT TO LIE DOWN IN BED, BUT HE WOULD NOT COMPLY. OFFERING EXPLANATIONS TO THE REASON DID NOT GAIN HIS COOPERATION. PT IS UNABLE TO REPEAT BACK DIRECTIONS THAT HE IS GIVEN. HE IS AWARE OF HIS NAME BUT NOT ORIENTED TO ANY OTHER DETAIL. HE IS VERY GUARDED AT THE INTRODUCTION OF ANY ITEM PRESENTED TO HIM. WHETHER IT BE FOOD, CLOTHING, BLOOD PRESSURE CUFF, THERMOMETER OR SOMETHING TO DRINK. HE IS HESITANT TO COOPERATE. WHILE ATTEMPTING TO GET PT TO MOVE UP IN BED AND LIE DOWN PT WAS BECOMING AGITATED. HE EVEN DOUBLED UP HIS ONCE. WAS ABLE TO GIVE HIM PRN HALDOL (BY MOUTH) IN ICE CREAM AT THAT POINT. HOWEVER, IT TOOK 15 MINUTES OF ENCOURAGEMENT FOR HIM TO TAKE THE MEDICINE IN ICE CREAM. STATED, UNABLE TO ORIENT PT TO ANY DETAIL REGARDING, DATE, TIME, LOCATION OR SITUATION. PT SPEECH IS OFTEN IN A PATTERN OF [employer] OR RAMBLING WITH OUT ANY APPARENT CONNECTION TO THE SITUATION AT HAND. PT ONLY NOTED TO HAVE URINATED ON THE FLOOR CREATING A SMALL SIZE PUDDLE TO CLEAN UP THIS MORNING.
--- NOTE | 2020-01-23 07:30 | NUR ---
WAS CALLED BY MONUMENTAL STONEMASON NURSE TO ROOM. NURSE IS STATING THAT PT came at him AND HE WOULD LIKE SECURITY CALLED. SECURITY WAS CALLED. IM MARCIA OBTAINED. I AND 2 SECURITY GUARDS WENT INTO ROOM. IM BRIANL GIVEN. PT ALLOWED ME TO TAKE VS.
--- NOTE | 2020-01-23 11:43 | NUR ---
SW reviewed chart and spoke with nursing and attending physician. Pt remains in Enhanced Isolation due to COVID-19. Pt is afebrile and not requiring O2. Security/[employer] called during golf club facer due to pt's behaviors. LIZZ left voice messgae for Jade, Campus Recruiting Intern at Health system to clarify requirements for pt to return to their facility. LIZZ is following to assist as needed with discharge planning.
--- NOTE | 2020-01-23 12:28 | NUR ---
LUNCH TAKEN INTO ROOM. PT SITING ON BED. FOOD PLACED ON TRAY. PT DID NOT CONVERSE WITH ME. JUST STARED AT THE FOOD. LOOKS IF PT HAD BM IN THE BATHROOM. PT WILL NOT LET ME BLADDER SCAN HIM AT THIS POINT
--- NOTE | 2020-01-23 16:10 | NUR ---
PT [facility]. ESCORTED BACK TO ROOM VIA 2 SECURITY GUARDS. CALLED AND TALKED WITH ROSE MARIE. ORDERS OBTAINED FOR THORAZINE IM INJECTION.
--- NOTE | 2020-01-23 18:33 | NUR ---
PT NON COOPERATIVE TODAY. UNABLE TO BLADDER SCAN PT THROUGHOUT THE SHIFT. NOTICED 2 VOIDS IN THE TOILET. PT RECEIVED IM HALDOL AND CHLORPROMAZINE. SEE PREVIOUS NOTES FOR MORE DETAIL.
--- NOTE | 2020-01-23 19:30 | NUR ---
ASSUMED CARE FROM DAY SHIFT PT UP IN ROOM, ATTEMPTING TO LEAVE ROOM , PT HALLWAY ANOTHER STAFF MEMEBER THERE TO HELP WHILE SECURITY AND DR VARGHESE CALLED. PT GIVEN IM THORAZAINE, AND WAS ABLE TO TAKE MEDICATION CRUSHED IN ICE CREAM. PT REMAINED RESTLESS THROUHGOUT HOURLY ROUNDS. WAS ABLE TO GET PT IN BED AFTER IM HALDOL GIVEN AT 0400.WILL CONTINUE WITH CURRENT PLAN OF CARE AND WILL REPORT CHANGES OR ABNORMAL FINDINGS.
[2020-01-23 21:48] VITALS: BP 142/88
[2020-01-24 04:16] VITALS: BP 141/82
[2020-01-24 07:07] VITALS: BP 174/74
--- NOTE | 2020-01-24 08:45 | NUR ---
NIGHT RN REPORTS THAT PT EXHIBETED AGGRESSIVE BEHAVIOR LAT NIGHT AND WAS MEDICATED. PT RESTING IN BED AND WILL ALLOW TO REST FOR NOW. WILL CONTINUE TO ASSESS.
--- NOTE | 2020-01-24 10:52 | NUR ---
LIZZ reviewed chart and spoke with nursing and attending physician. Pt remains in Enhanced Isolation due to COVID-19. Pt had repeat COVID test yesterday and it is positive. LIZZ faxed clinical updates to [facility] sarah Grijalva for review and left voice message for Jade, wellness trainer. LIZZ also left voice message for pt's sister, Jackie. LIZZ is following to assist as needed with discharge planning.
[2020-01-24 15:17] VITALS: BP 114/68
--- NOTE | 2020-01-24 17:36 | NUR ---
PT REMAINS ASYMPTOMATIC COVID POSITIVE. CONTIUES WITH ETOH DEMENTIA AT BASELINE. CONTINUE TO ASSIST WITH FEEDINGS AND DAILY CARE. STRAIGHT CATH PT THIS EVENING WITH 700 ML OUTPUT OF RUBI URINE. EILL CONTINUE TO ASSESS.
[2020-01-24 19:13] VITALS: BP 125/84
--- NOTE | 2020-01-24 22:08 | NUR ---
PT RESTING IN BED, UPON ARRIVAL TO SHIFT PT SEDATED AND DID NOT OPEN EYES FOR ASSESSMENT OR VS. PT HAD US OF ABD, PT DID AWAKEN TO OPEN EYES AND COMMUNICATED WITH MUMBLED SPEECH. PT COMPLIANT WITH MEDS AND HS SNACK. ABD REMAINS DISTENDED AND FIRM. BED ALARM ON.
--- NOTE | 2020-01-24 23:05 | NUR ---
REPORT CALLED TO [facility], PT TRANSFERRED IN BED AND ALL OF HIS BELONGINGS SENT WITH HIM.
== END 2020-01-24 23:35 | DRG 178 ==
LOC: 3W 18:43
PROVIDERS: Nurse Practitioner; Nurse Practitioner Family; ADMIT Internal Medicine; ATTEND Family Medicine
DX: U07.1 COVID-19 (principal); F01.51 Vascular dementia, unspecified severity, with behavioral disturbance; E46 Unspecified protein-calorie malnutrition; I50.9 Heart failure, unspecified; I11.0 Hypertensive heart disease with heart failure; E78.5 Hyperlipidemia, unspecified; I10 Essential (primary) hypertension; Z66 Do not resuscitate; R33.9 Retention of urine, unspecified; Z95.0 Presence of cardiac pacemaker; Z79.899 Other long term (current) drug therapy
CPT/HCPCS: 10080; 10879

== ENCOUNTER 2020-01-24 20:44 | Inpatient (IN) | payer OTHER ==
[~2020-01-24] VITALS: Ht 180.3 cm; Wt 104.8 kg
[~2020-01-24 20:44] MED LIST changes: +ACCUPRIL5 MG PO; +B-121000 MC2 PO; +VITAMIN C500 M2 PO
[2020-01-24 23:40] VITALS: BP 127/95
--- NOTE | 2020-01-25 01:00 | NUR ---
PT TRANSFERRED FROM COVID UNIT AND RE ADMITTED TO [facility]. PT LIVES ON MEMORY UNIT WHERE HE WAS EXIT SEEKING, COMBATIVE. PT SEDATED AND SLEEPING DURING TRANSFER TO UNIT. PT AWAKENED WHEN PULLED TO NEW BED AND BECAME IRRITABLE AND GRABBING AND CLENCHING TEETH, BUT ABLE TO BE VERBALLY REDIRECTED TO RELAX. PT HAD ALL OF HIS EVENING MEDS ON 3W. DPOA NOTIFIED OF TRANSFER. PT PMH HTN, CHG, PACEMAKER, ALCOHOL RELATED DEMENTIA, COVID POSITIVE, CURRENT UTI. PT NEEDS ASSISTANCE WITH ADLS, EATING AND URINATION. PT AT TIMES IS INCONTINENT BUT WAS STRAIGHT CATHETERIZED ON DAY SHIFT ON 3W. PT HAS A HISTORY OF WANDERING BUT WITH A STEADY GAIT. BED ALARM ON.
--- NOTE | 2020-01-25 05:49 | NUR ---
01-25-20 CARE TRANSFERRED AT 0230 PT SUPINE IN BED RESTING WITH EYES CLOSED, ZERO S/S OF ACUTE DISTRESS NOTED, PT WILL CONTINUE TO BE MONITOR PER [facility] PROTOCOL.
[2020-01-25 16:41] VITALS: BP 132/100; BP 140/82
--- NOTE | 2020-01-25 17:57 | NUR ---
1700 RESUMMED CARE FROM OVERNIGHT SHIFT THIS AM, PATIENT ASLEEP IN ROOM. 2 STAFF HAD TO ASSIST PATIENT TO JOHANNA CHAIR FOR BREAKFAST AND TO BE IN DAYROOM FOR OBBSERVATION. PATIENT WAS AGITATED THIS AM ATE HALF OF BREAKFAST AND SPIT MEDICATION OUT. I CALLED DR TROTTER AND HE ORDERED OLANZAPINE 7.5 MG IM FOR MEDICATION REFUSAL. AFTER PATIENT RECEIVED IM MORE COOPERATIVE CALM; PATIENT ABDOMEN SOFT ROUND BOWEL SOUNDS PRESENT. PATIENTS LUNGS CLEAR PATIENT ORIENTED TO SELF ONLY. PATIENT UNABLE TO TELL YOU ABOUT SI/HI/AH/VH AT PRESENT DUE TO COGNITIVE DISORDER. WILL CONTINUE TO MONITOR PATIENT FOR SAFETY AND BEHAVIORS.
[2020-01-25 19:30] VITALS: BP 160/101
[2020-01-26 00:05] VITALS: BP 140/82
--- NOTE | 2020-01-26 03:03 | NUR ---
Assumed care of patient this pm shift. Patient sitting in mileu during assessment. Patient is irritable. Patient is alert and oriented to self only. Patient refused medications this shift. Patient appears to be somewhat sedated. Patients affect is blunted. Patient has also been spitting phlegm on the floor. Vital signs are stable. No acute distress noted at this time. We will continue to monitor per hospital policy.
[2020-01-26 07:00] VITALS: BP 100/61
--- NOTE | 2020-01-26 08:14 | H ---
[facility] [place] [address] HISTORY AND PHYSICAL Name: MARCELINO HARRIS Room #: 527B-B ADM IN M.R.#: [id number] Admission: 01/24/20 Attend Phys: Juan Rick DO Discharge: Date of : 60 Report #: [id number] THIS REPORT FOR: cc: DARIUSZ TAYLOR - Family physician unknown Juan Rick DO ~ CC: Juan RAO unknown DATE OF SERVICE: 01/25/2020 INPATIENT PSYCHIATRIC EVALUATION ATTENDING PSYCHIATRIST: Juan Rick DO ARC WELDING MACHINE OPERATOR: Jacob Carey MD. REASON FOR ADMISSION: Dementia with behavioral disturbance, COVID-19 positive. The patient normally resides at [facility]. He was sent here about 2 weeks ago due to exit seeking, combative behavior and was sent down to the Medical Unit last Thursday. He did have some wandering in the halls, not directing well Thursday of this week but then on the medical floor improved. In any event, the patient's past history has been detailed extensively and previous evaluations all have minimized my comments in some of the areas of concern. PAST MEDICAL HISTORY: Includes cardiomyopathy, hypertension, hyperlipidemia, history of dementia. PAST SURGICAL HISTORY: Open reduction and internal fixation of the lower extremity. SUBSTANCE USE HISTORY: Smoking for 20 years. Currently, not smoking in the memory care. Alcoholism, was extensive particularly between 2012 and 2017 after his . He has been disabled since his early 50s. He is estranged from his adult children. ALLERGIES: No known allergies. LABORATORY DATA: Most recent laboratories done in the Medical Unit included from 01/22/2020, white count 3.3, H and H 13.2 and 39.2, platelet count 107, so he is slightly thrombocytopenic. Chemistry: Sodium 141, potassium 3.9, chloride 106, bicarbonate 29, anion gap 6, BUN 15, creatinine 0.9, estimated GFR 86, glucose 107, calcium 8.3, phosphorus 3.7, magnesium 2.0. AST 22, ALT 29, [facility] [address] [place] [address] HISTORY AND PHYSICAL Name: STEVENMARCELINO G Room #: 527B-B [facility] IN [facility]#: [id number] Admission: 01/24/20 Attend Phys: Juan Rick DO Discharge: Date of : 60 Report #: [id number] alkaline phosphatase 72, total protein 6.5, albumin 3.0, B12 1603, vitamin D 43.4. Folate 19.9. TSH 1.605. Urinalysis last done on 01/22/2020 had some positives including mucus, moderate bacteria, and moderate white blood cell count. Microbiology culture, Staphylococcus epidermidis. The patient is being treated with an antibiotic for that. COVID-19 PCR serology was positive on 01/18/2020, repeat on 01/18/2020, again positive on 01/23/2020. PHYSICAL EXAMINATION: VITAL SIGNS: Today on the [facility], temperature 36.9, pulse 86, respirations 18, BP 140/82, O2 sat 96%. The patient was seen via televideo device, seated at table in the dining room. He does not speak with me. MENTAL STATUS EXAMINATION: A well-developed, well-nourished, mildly obese female appearing stated age. Attention could not be tested. Speech: He was essentially mute today. Thought process and content: Unable to be ascertained, did not engage in self-harmful behavior, unable to assess well further for SI, HI, did not appear to be responding to internal stimuli. Memory is impaired. Insight impaired, judgment impaired. Fund of knowledge below average. FORMULATION: A 59-year-old male with major neurocognitive disorder due to multiple etiologies, namely alcoholism and possible Alzheimer's disease. The patient has accompanied medical comorbidities including thrombocytopenia, likely alcoholic liver disease, history of cardiomyopathy, hyperlipidemia. Assesment: Major Neuruocognitive Disorder due to multiple etiologies COVID 19 + PLAN: Evaluate, stabilize, obtain collateral. CURRENT MEDICATIONS: Are as follows: Seroquel 200 mg p.o. in the morning, tamsulosin 0.4 mg p.o. daily, Seroquel 250 mg p.o. at bedtime, Seroquel 50 mg p.o. q. 1600, olanzapine 7.5 mg q. 5 p.r.n. for refusal of Seroquel or agitation, thiamine 100 mg p.o. daily for supplementation, lisinopril 5 mg p.o. daily, heparin currently getting 5000 International Units p.o. b.i.d., famotidine 20 mg p.o. daily, Depakote 750 mg p.o. b.i.d., cefuroxime 500 mg p.o. b.i.d. should be done that in a couple of days, additional plan: we will check with the hospitalist, vitamin C 500 mg p.o. b.i.d., Coreg 12.5 mg p.o. b.i.d. Attempt to get him placed back to [facility] as soon as we can. COVID-19 is an obstacle. STRENGTHS: Has a DPOA. Has a placement. [address] [address] HISTORY AND PHYSICAL Name: MARCELINO HARRIS Room #: 527B-B ADM IN .#: [id number] Admission: 01/24/20 Attend Phys: Juan Rick DO Discharge: Date of : 60 Report #: [id number] WEAKNESSES: COVID-19 , present medical comorbidities, check by the hospitalist whether he needs heparin and stop date for the cefuroxime. We will need to see here, which hospitalist will see him. <ELECTRONICALLY SIGNED> By: Juan Rick DO 01/26/20 0814 1700 1752 Juan Rick DO /nt
--- NOTE | 2020-01-26 10:58 | NUR ---
SW sent a referral to [facility] because they are accepting COVID positive pt's. SW team will continue to follow pt during his stay on this unit.
[2020-01-26 18:02] VITALS: BP 126/98
--- NOTE | 2020-01-26 18:06 | NUR ---
ASSUMED CARE AT 0700 THIS MORNING. PT. UP IN CHAIR IN THE DINING ROOM. HE MANAGED TO EAT ABOUT 1/2 HIS BREAKFAST. HE SLEPT MOST OF THE DAY, REFUSING LUNCH. HE MANAGED TO WAKE UP SOME AND EAT SOME SUPPER. HE WAS TAKEN TO THE BATHROOM ON 4 SEPERATE OCCASIONS, BUT HAS NOT VOIDED. THE DRRoberto WAS CALLED, AND ASKED FOR SOME LABS AND AN IV AND FLUIDS GIVEN. IV TEAM NOTIFIED OF DESIRE TO ASSIST IN STARTING AND IV. HE STOOD UP ONCE STATING HE HAD TO USE THE URINAL BUT WHEN TAKEN TO HIS ROOM, HE REFUSED TO STAND AT ALL. HE HAS BEEN IN THE DINING ROOM WATCHING TV THIS EVENING.
[2020-01-26 18:42] LABS: HEMATOCRIT 39.3 % (42.0-52.0); HEMOGLOBIN 12.8 gm/dL (14.0-18.0); MCH 30.9 pg (26.0-34.0); MCHC 32.7 g/dL (28.0-37.0); MCV 94.7 fL (80.0-100.0); RBC 4.15 mil/uL (4.50-6.00); WBC 5.9 thou/uL (4.0-11.0)
[2020-01-26 19:04] LABS: CALCIUM 8.6 mg/dL (8.5-10.1); CREATININE 1.3 mg/dL (0.7-1.3)
[2020-01-26 21:54] VITALS: BP 148/90
--- NOTE | 2020-01-27 05:40 | NUR ---
Assumed care of pt @ 1900. Pt calm et cooperative this shift. Took medications crushed in pudding without difficulty. Ambulates with assistance of staff due to unsteady gait. VSWNL. Health assessment with no abnormalities noted at present time. Denies SI/HI/AVH at present time. Currently resting in livier-chair in dayroom with eyes closed. Will continue to monitor per protocol.
[2020-01-27 08:45] VITALS: BP 165/66
[2020-01-27 08:49] VITALS: BP 165/66
[2020-01-27 12:53] LABS: CALCIUM 8.2 mg/dL (8.5-10.1); CREATININE 1.2 mg/dL (0.7-1.3); POTASSIUM 3.9 mmol/L (3.5-5.1)
--- NOTE | 2020-01-27 13:37 | NUR ---
TOOK MEDS CRUSHED IN YOGURT-AFTER 2 BITES BEGAN TO SWEAR LOUDLY AND SPIT YOGURT IN NURSES FACE-AFTER THAT REFUSED TO TAKE ANY ADDITIONAL PO FLUIDS OR FOOD-WILL LAYH WITH EYES TIGHTLY CLOSED AND IGNORES VERBAL COMMANDS BUT WHEN TOUCHED FOR ANY TYPE OF INTERVENTION BECOMES ANGRY\\,AGITTED SWEARIMNG AND ATTEMPTEDF TO STRIKE STAFF. ATTEMPTED X 2 TO STRAIGHT CATH FOR UA PER MD ORDER-REQUIRES ASSIST OF 4 STAFF TO HOLD DOWN DURING PROCEDURE. DR TROTTER AND FR BLAND NOTIFIED OF ABOVE. NURSING STAFF FROM 3 WEST TO FLOOR AT APPROX 1245 AND AFTER [address] FOLE CATHETOR-PT REMAINS AGITATED YELLING PROFANITY ANF IMMEDIATLY BEGINS TO PULL ON REYES-DR TROTTER CONTACTED AN D ORDERS RECEIVED FOR 1;1-UA COLLECTED AND SENT TO LAB. CONTINUES TO REFUSE TO EAT OR DRINK-"IM NOT TAKINMG ANYTHING FROM YOU MOTHERFUCKERS"
[2020-01-27 14:11] LABS: URINE BILIRUBIN NEGATIVE (Negative); URINE BLOOD NEGATIVE (Negative); URINE CLARITY CLEAR; URINE COLOR YELLOW; URINE GLUCOSE-RANDOM* NEGATIVE (Negative); URINE KETONES 1+ (Negative); URINE LEUKOCYTES-REFLEX NEGATIVE (Negative); URINE NITRITE-REFLEX NEGATIVE (Negative); URINE PROTEIN (DIPSTICK) TRACE (Negative); URINE SPECIFIC GRAVITY 1.025 (1.005-1.035)
[2020-01-27 14:39] LABS: CASTS None Seen /LPF (None Seen); MUCUS None Seen strn/LPF (None Seen); SQUAMOUS None Seen /LPF (0-3); URINE RBC 0-2 Rare /HPF (0-2); URINE WBC-REFLEX None Seen /HPF (0-5)
[2020-01-27 14:40] LABS: BACTERIA-REFLEX None Seen /HPF (None Seen); CRYSTALS None Seen /LPF (None Seen)
--- NOTE | 2020-01-27 17:46 | NUR ---
PT CONTINUES TO GRAB AT REYES CATHETOR TUBING AND DESPITE 1;1 STAFF BEING AT BEDSIDE AND ATTEMPTING TO HOLD HIS HANDS WAS ABLE TO GET HOLD OF TUBING-REQUIRED 3 STAFF TO INTERVENE-DR TROTTER AND DR. BLAND CONTACTED-DR BLAND TO FLOOR AT APPROX 1600 AND ORDERD SOFT WRIST RESTRAINTS-AND IV FLUIDS-IV STARTED IN LEFT ANTICUBITAL BY IV TEAM-NS AT 250ML PER HR BEGAN AT APPROX. 1700. REFUSED 1700 METOPROLOL AND 1600 SEROQUEL. ZYPREXA 7.5MG GIVEN IM IN LEFT DELTOID AT APPROX 1630 FOR REFUSAL OF SEROQUEL. DID EAT APPROX 10 PERCENT OF SUPPER WITH STAFF FEEDING HIM-900 CC RUBI COLORED URINE PER REYES-NO CLOTS/SEDIMENT VISIBLE. IS SLIGHTLY MORE COOPERATIVE AT APPROX 1800-FOLLOWS VERBAL REQUESTS FROM STAFF
[2020-01-27 19:00] VITALS: BP 131/77
--- NOTE | 2020-01-27 21:04 | NUR ---
Care assumed of patient at 1915: Patient laying in bed at start of shift. 1:1 sitter at bedside. Patient has carter catheter that is intact, draining clear yellow urine. IV in place to left arm. Soft wrist restraints in place to bilateral hands. Patient drowsy. Responds to name being called. Otherwise, confused and forgetful. Patient easily irritable and frustrated with cares. Poor eye contact made. No aggressive behaviors observed. No behaviors indicative of SI/HI/AH/VH. No delusional or paranoia behaviors observed. Denies pain and discomfort. Patient took HS medication crushed without difficulty. Ate approximately 10% HS snack. Patient was able to fall asleep without difficulty and is resting quietly at this time.
[2020-01-28 07:09] LABS: CALCIUM 7.9 mg/dL (8.5-10.1); POTASSIUM 3.8 mmol/L (3.5-5.1)
[2020-01-28 09:53] VITALS: BP 127/82
--- NOTE | 2020-01-28 11:09 | NUR ---
1100 RESUMMED CARE FROM OVERNIGHT SHIFT THIS AM, PATIENT IN ROOM SLEEPING. I WOKE PATIENT UP TO EAT BREAKFAST CRUSHED HIS MEDICATION IN OATMEAL. PATIENTS REYES AND IV DISCONTINUED PER MECHANICAL SERVICE SPECIALIST DAVID CHAKRABORTY/ROSE MARIE. PATIENTS ABBDOMEN SOFT ROUND BOWEL SOUNDS PRESENT LUNGS CLEAR. PATIENT IS SLEEPING QUIETLY IN ROOM PATIENTS ABDOMEN SOFT ROUND BOWEL SOUNDS PRESENT. PATIENTS LUNGS CLEAR O2 98% PATIENT IS ORIENTED TO SELF ONLY. PATIENT CANNOT TELL YOU ABOUT SI/HI/AH/VH AT PRESENT. WILL CONTINUE TO MONITOR PATIENT FOR SAFETY AND BEHAVIORS.
[2020-01-28 19:40] VITALS: BP 126/65
--- NOTE | 2020-01-28 23:17 | NUR ---
Prior shift reported that pt had not urinated all day. Pt resting in bed et demonstrated restlessness around 2315. When asked if he needed to urinate, pt was unable to verbalize an appropriate response. Order obtained from TOOL POLISHING MACHINE OPERATOR hospitalist sourcing consultant for straight cath X1. Procedure performed which resulted in 275mL of john urine. Pt now resting confortably in bed with eyes open. Will continue to monitor per protocol.
--- NOTE | 2020-01-29 02:30 | NUR ---
Assumed care of pt @ 1900. Pt calm et cooperative this shift. Took medications crushed in ice cream without difficulty. VSWNL. Health assessment with no abnormalities at present time. Pt very restless et agitated in bed this shift. Jerking motions et falling in et out of sleep. Pt was given PRN Haldol et Ativan for agitation when changing his brief. Pt attempting to punch et kick staff during changing. Unable to assess SI/HI/AVH this shift due to cognitive deficit but pt does not demonstrate any signs or symptoms of emotional distress at present time. Currently resting in bed with eyes intermittently closed. Will continue to monitor per protocol.
--- NOTE | 2020-01-29 04:15 | NUR ---
Patient was able to fall asleep around 0148 this shift. Patient continues to have some mumbling and jerking movements while sleeping.
[2020-01-29 06:24] VITALS: BP 124/84
--- NOTE | 2020-01-29 09:24 | NUR ---
0700 ASSUMED CARE OF PATIENT, PATIENT IN BED WITH EYES CLOSED. PATIENT SEEPING OFF AND ON THIS AM. 0800 PATIENT REPOSITIONED IN BED TO LEFT SIDE. 0900 PATIENT REPOSITIONED IN BED, PATIENT AWOKE APON REPOSITIONING. MWEDICATION GIVEN CRUSHED IN [place]ERB[place] WITHOUT DIFFICULTY. PATIENT ATE FEW BITES OF BREAKFAST AND SIPS OF H2O AND JUICE. WILL CONTINUE TO ENCOURAGE FLUIDS. PATIENT SLEEPING AT THIS TIME. NO RESPIRATORY DISTRESS, LS CLEAR, BS ACTIVE. PATIENT UNABLE TO ANSWER QUESTIONS, PATIENT SLEEPY. WILL CONTINUE TO OBSERVE
--- NOTE | 2020-01-29 11:22 | NUR ---
EXPERIMENTAL PSYCHOLOGIST OBTAINED 400CC OF ORANGE TINT COLOR URINE VIA STRAIGHT CATH. WITH ASSIST X3. PATIENT CONTINUES TO LAY IN BED WITH EYES CLOSED. LAB DRAW AT 1120, PATIENT SLEPT THROUGH THE DRAW. PATIENT OFFERED H2O USING SYRINGE, 60 ML OF H20 TAKEN. WILL CONTINUE TO ENCOURAGE FLUIDS. PATIENT HAD 120ML OF FLUID WITH BREAKFAST. PATIENT IN BED WITH EYES CLOSED AT THIS TIME.
[2020-01-29 11:24] LABS: HEMATOCRIT 37.3 % (42.0-52.0); HEMOGLOBIN 12.3 gm/dL (14.0-18.0); MCH 30.9 pg (26.0-34.0); MCHC 32.9 g/dL (28.0-37.0); MCV 93.9 fL (80.0-100.0); PLATELET COUNT 156 thou/uL (150-400); RBC 3.97 mil/uL (4.50-6.00); RDW 13.9 % (10.5-14.5); WBC 3.7 thou/uL (4.0-11.0)
[2020-01-29 11:34] LABS: CALCIUM 8.2 mg/dL (8.5-10.1); CREATININE 0.8 mg/dL (0.7-1.3); MAGNESIUM 2.1 mg/dL (1.8-2.4)
[2020-01-29 12:19] LABS: ABSOLUTE NEUTROPHILS 2.1 thou/uL (1.4-8.2); PLATELET ESTIMATE NORMAL
--- NOTE | 2020-01-29 13:44 | NUR ---
FOR LUNCH PATIENT ATE 25% OF MEAL AND FLUID INTAKE OF 100 ML. 1340 PATIENT AROUSABLE BY CALLING NAME. PATIENT ENCOURAGED FLUID INTAKE. PATIENT HAD 60ML OF ICE TEA. PATIENT REMAINS IN BED SLEEPING. WILL CONTINUE TO OBSERVE
--- NOTE | 2020-01-29 16:48 | NUR ---
1445 PATIENT HAD 100 ML OF FLUID WITH USE OF SYRINGE. PATIENT CONTIUES TO SLEEP, IS EASILY AROUSED WHEN CALLING NAME. PATIENT SHAVED BY STAFF, PATIENT CALM AND COOPERATIVE AT THAT TIME. PATIENT CONTINUES TO SLEEP QUIETLY. SLIGHT AGRESSION NOTED WITH CARES. PATIENT HAS NOT VOIDED TODAY, WILL CONTINUE TO OBSERVE.
--- NOTE | 2020-01-29 18:35 | NUR ---
1700 PATIENT REFUSED MEDICATIONS BP- 101/66 P- 61 PATIENT SLEEPY AT THIS TIME. 1750 Dr BLAND CALLED AND UPDATED ON PATIENTS PROGRES OF FLUID INTAKE AND LABS. PATIENT HAS HAD 750 ML OF FLUID AT THIS TIME. PATIENT TAKES FLUIDS EASILY WITH SYRINGE. PATIENT CONTINUES TO REMAIN SLEEPY.
[2020-01-29 19:36] VITALS: BP 95/57
--- NOTE | 2020-01-29 22:10 | NUR ---
Care of patient assumed at 191: Patient laying quietly in bed at start of shift. Easily aroused. Originally appeared calm, pleasant and cooperative. Confused, oriented to name only. Denied pain or discomfort. Took HS medication crushed without difficulty. Drank 240cc juice. Ate 100% HS snack of pudding, then ate 10% dinner tray. Speech clear but disorganized at times. Patient appeared to then go to sleep without difficulty. Patient having kicking motions, body tensing which was waking him up intermittently. Staff responded to bed alarm around 2129. Patient was attempting to get out of bed independently. Angry, cursing, attempted to kick and hit staff with his fists. Teeth grimaced, suspicious affect. Patient declined needing to use the bathroom. Pushed away cup when offered fluids. For patient safety, patient assisted to livier chair and to the dayroom. No PRN medication administered for aggression/agitation/hostile behaviors. Once patient was situated in the dayroom, he started to watch TV and was asleep within a couple minutes. Patient appears to be rather calm, sleeping off and on in dayroom.
[2020-01-30 07:00] VITALS: BP 97/59
--- NOTE | 2020-01-30 11:32 | NUR ---
LIZZ spoke with INGRIS Hansen at [facility]. LIZZ gave an update on the Pt and discussed d/c. D/C is set for 02/02/2020 @ 0830am. Pt will be transported via [facility] confirmation #[id number]
[2020-01-30 15:08] LABS: BASOPHILS 0.3 % (0.0-2.0); EOSINOPHILS 1.5 % (0.0-3.0); HEMATOCRIT 39.6 % (42.0-52.0); LYMPHOCYTES 18.3 % (24.0-44.0); MCH 30.9 pg (26.0-34.0); MCHC 32.9 g/dL (28.0-37.0); MCV 94.1 fL (80.0-100.0); MONOCYTES 10.4 % (1.0-8.0); PLATELET COUNT 176 thou/uL (150-400); POLYS 69.5 % (36.0-66.0); RBC 4.21 mil/uL (4.50-6.00); RDW 13.9 % (10.5-14.5); WBC 5.7 thou/uL (4.0-11.0)
[2020-01-30 15:20] LABS: ALBUMIN 2.9 g/dL (3.4-5.0); CALCIUM 8.3 mg/dL (8.5-10.1); CREATININE 0.8 mg/dL (0.7-1.3); PHOSPHORUS 3.5 mg/dL (2.5-4.9); POTASSIUM 4.2 mmol/L (3.5-5.1); TOTAL BILIRUBIN 0.3 mg/dL (0.2-1.0); TOTAL PROTEIN 6.8 g/dL (6.4-8.2)
--- NOTE | 2020-01-30 16:23 | NUR ---
0700 Assumed care of patient, patient sitting up in [facility] at that time. VS: bp-97/59 P-80 RESP-18 TEMP- 98.7 O2 Sats 90%. Patient refused brerakfast, fiction and nonfiction prose writer attempted to assist with meal. Patient refused po medications, patient appears to be restless at that time. 0850 wroter attempted to give flu shot, patient became combattive and aggressive. Patient throws breakfast and milk on floor and at staff. Patient attempting to get out of chair, patient unsteady. patient grabbing fiction and nonfiction prose writer and swinging at staff. Patient out of chair with unsteady gait. Security called to assist with patient, patient back to chair. 0900 Haldol 2 mg IM given to left deltoid. Increased agitation noted when trying to talk to patient. After injection patient calms down with lap amadou in place. Patient has had 300ml by 1100am. 1110 Thorazine 37.5mg IM given and flu shot as ordered. Injections given with assistance of security. Patient quiet and calm sitting in dayroom. 1230 patient assisted with lunch tray. patient ate 1/2 hamburger and 100 ml of fluid. 1440 no output noted, Dr. Rodney and Nurse manager research and development on floor to assist with patient to use urnal. Attempted to stand patient with patient resisting. Patient to bed x3 assist. Dr Rick and Nurse manager research and development obtained bladder scan of 250ML of urine. no c/o pain, no distention noted. Patient denies need to urinate. 1510 after discussing care plan with Dr. Rick Dr agrees and states its ok to give scheduled IM at this time. Thorazine 37.5 mg IM given @ 1510 with assist of staff x3. Bed alarm remained on. 1525 alarm sounded, thump herad prior to RN to room. RN observed patient on floor at end of bed. Screen Door Maker, Dr Rick and staffing account manager in room. No injury noted, patient denies pain. patient to dayroom in [facility] at 1531 VS obatined. 1333 BP- 138/78 P-87 RESP 18 O2 SATS 95% TEMP- 97.4. asked patient again if in pain patient denies pain. Fluids given with 120 in. at 1400. 1430 VS- BP- 133/81 P-97 O2 SATS 95% RESP-18. Patient refusing to eat dinner. Will continue to observe patient.
[2020-01-30 22:21] VITALS: BP 133/81
--- NOTE | 2020-01-31 03:09 | NUR ---
Assumed care of patient this pm shift. Patient sitting in the mileu in a livier chair during assessment. Patient is very quiet this evening but is able to answer yes/no questions. Patient denies si. Patients affect is blunted. Patient is somewhat sedated. Patient took medications crushed in pudding and did not require an im backup. Patient is considered a falls risk and has on a yellow shirt. Patient has slept the majority of the night in the livier chair. Patient becomes irritable and aggressive with too much stimulation. Patient does not appear to be in any acute distress. We will continue to monitor per hospital policy.
[2020-01-31 08:30] VITALS: BP 103/70
--- NOTE | 2020-01-31 09:25 | NUR ---
LIZZ spoke with Autumn, Pt's DPOA, concerning Pt's placement at [facility]. Autumn is concerned that although [facility] is willing to accept the Pt back after his stay here they will eventually ask the Pt to leave due to his behaviors. Autumn asked for a list of possible facilities that may be able to handle Pt's behaviors. LIZZ provide Autumn with medicare.gov website to search facilities. [facility] LIZZ will continue to follow
--- NOTE | 2020-01-31 09:29 | NUR ---
SW sent referrals to the following as they all have secured memory care units: [facility] [phone] Madi Anguiano [phone] [facility] [phone] [facility] [phone] Center- Pt denied 01/26/2020
[2020-01-31 09:30] VITALS: BP 103/70
--- NOTE | 2020-01-31 10:06 | NUR ---
0700 Assumed care of patient, patient sleeping in livier chair in dayroom. VS- BP 103/70 P-85 RESP-18 TEMP-98.1 O2 SATS 95%. Medication taken crushed in applesauce without difficulty. Patient fluid intake of 50ml. 1000 bladder scan completed with right side 418 and left side 641. Dr Rick aware. patient sleeping in chair at this time. Chair alarm in place. Tellow shirt on and Yellow band on. Will continue to observe.
[2020-01-31 11:09] LABS: URINE BILIRUBIN NEGATIVE (Negative); URINE BLOOD NEGATIVE (Negative); URINE CLARITY CLEAR; URINE GLUCOSE-RANDOM* NEGATIVE (Negative); URINE KETONES 1+ (Negative); URINE LEUKOCYTES-REFLEX NEGATIVE (Negative); URINE NITRITE-REFLEX NEGATIVE (Negative); URINE PROTEIN (DIPSTICK) TRACE (Negative); URINE SPECIFIC GRAVITY >= 1.030 (1.005-1.035)
[2020-01-31 11:10] LABS: URINE COLOR AMBER
--- NOTE | 2020-01-31 12:30 | NUR ---
1030 PATIENT TAKEN TO ROOM IN [facility]. PATIENT TRANSFERED TO BED X3 ASSIST. PATIENT ASSISTED IN LAYING DOWN AND EXPLAINED ABOUT OBTAINING URINE VIA STRAIGHT CATH. PATIENT UNABLE TO UNDERSTAND. USING STERIL TECHNIQUE, STRAIGHT CATHERIZATION DONE TO DRAIN URINE. PROCEDURE DONE WITH ASSIST X4. PATIENT YELLING OUT CUSSING AND ATTEMPTING TO GET UP AND HIT STAFF. 655 ML OF RUBI URINE OBTAINED. UA COLLECTED AT THAT TIME. PATIENT CLEANED UP AND CHANGED. TRANSFERED TO [facility] WITH CHAIR ALARM IN PLACE. OUT TO DAYROOM AND SEATED AT TABLE. SIPS OF H2O GIVEN. WILL CON TINUE TO OBSERVE
[2020-01-31 17:00] VITALS: BP 101/64
[2020-01-31 19:35] VITALS: BP 108/68
--- NOTE | 2020-02-01 04:32 | NUR ---
01-31-20 CARE TRANSFERRED 1914 OBSERVED PT SITTING IN JOHANNA CHAIR IN DAY ROOM. 1934 PT PRESENTS CONFUSED, AAOX1, VSS, RR EVEN AND NONLABORED ON RA. PT DENIES PAIN, NO S/S OF PAIN NOTED. PT HAD NO BEHAVIORS THAT INDICATED SI/HI. PT REMAINED CALM AND COOPERATIVE THROUGHOUT NURSING ASSESSMENT. OFFERED PT FLUIDS, BUT PT REFUSED AT THIS TIME. DURING MEDICATION ADMIN PT PRESENTS CONFUSED AND AGITATED, NOT WANTING TO FINISHING MEDICATION, THEN NOTED SPIT ON FLOOR, WHEN DELIVERY OF IM ENOXAPARIN PT STARTED SWINGING UE AT RN. WHEN TRYING TO REDIRECTED PT, NOTED PT BECAME SEVERELY AGITATED AND 37.5MG THORZAINE IM TO R. DELTOID. NOTED PT HAD CALMED DOWN AND PT ATE 100% HS SNACK. 2129 PT BLADDER SCANNED WITH SECURITY ASSISTANCE, PT COMBATIVE AND AGITATED DURING BLADDER SCAN 229ML. PT WAS SWINGING UE AND KICKING LE AT STAFF, NOTED AFTER PROCEDURE PT EASILY CALM DOWN. LATER PT WAS ASSISTED WITH REPOSITION FOR COMFORT. ZERO S/S OF ACUTE DISTRESS NOTED, PT WILL CONTINUE TO BE MONITOR PER [facility] PROTOCOL.
--- NOTE | 2020-02-01 07:35 | NUR ---
Assumed care 0700. Patient sleeping in the recliner in the dayroom.
--- NOTE | 2020-02-01 09:14 | NUR ---
ASSUMED CARE AT 0900 THIS MORNING. PT. CONTINUES TO BE IN THE DINING ROOM IN RECLINING CHAIR. HE IS ASLEEP. WILL CONTINUE TO MONITOR.
--- NOTE | 2020-02-01 09:38 | NUR ---
LIZZ received a call from Johanny Fontanez asking for updates for pt. LIZZ faxed them to [phone]. LIZZ also gave her an update on pt's medication regimine. LIZZ team will continue to follow pt during his stay on this unit.
[2020-02-01 11:02] VITALS: BP 97/54
--- NOTE | 2020-02-01 11:20 | NUR ---
At 1030 patient declined to use urinal, was combative with bladder scan. 399 ml in bladder per baldder scan. Patient taken to his room, required 4 people to hold him and one to straight catherize with 210 cc/ml returned of dark john colored urine. Patient returned to recliner to watch TV/rest in dayroom. Lap amadou in place in front of patient with chair alarm on.
[2020-02-01 19:00] VITALS: BP 112/74
--- NOTE | 2020-02-02 06:22 | NUR ---
ASSUMED PT'S CARE THIS PM SHIFT. PT WAS ON A GERICHAIR IN THE DAYROOM. SOME HESITANCY WITH CARE. PT TOOK MEDS CRUSHED IN PUDDING. HAD TO GIVE SEVERAL TINY SCOOPS PT WAS NOT OPENING MOUTH FOR MEDS. PT SLEPT 6 HOURS THIS SHIFT. PT DID SHOW MILD AGITATION. NO PRN SHOT GIVEN THIS SHIFT. PT BLADDER SCANNED AND SHOWED 355ML. PER ORDER, DID NOT CALL FOR STRAIGHT CATH. WATER OFFERED INTERVALLY. PT DID TAKE FEW SIPS ONCE IN A WHILE. PT REMAINED WITHOUT VOIDING THIS SHIFT. PT CURRENTY ON THE GERICHAIR. FALL PRECAUTION IN PLACE. LAB DRAW THIS AM. COVID TEST FOR 02/01/[address] TROTTER NOTIFIED. WILL CONTINUE TO MONITOR.
[2020-02-02] MEDS ORDERED: FLOMAX0.4 MG PO (08:02)
[2020-02-02] MEDS ORDERED: PEPCID20 MG PO (08:05)
[2020-02-02] MEDS ORDERED: CHLORPROMAZINE25 M3 PO (08:05)
[2020-02-02] MEDS ORDERED: FINASTERIDE5 MG PO (08:06)
[2020-02-02 09:35] VITALS: BP 116/87
--- NOTE | 2020-02-02 12:37 | NUR ---
0715 Alert and orientated to name only. Sleepy this AM but does have confused speech with stimulation. Was able to stand up and lay down on bed with assistance of 1, unsteady and slightly resistant to transfer. No response to SI/HI questions. Resistant to breakfast but did drink 300 cc H20 when fed. Also ate 4 oz yogurt with meds while being fed. Meds were crushed before giving. Breath sounds clear t/o with good aeration, O2 sats in high 90s. Coarse, sporadic cough. Reg HR with distant tones auscultated. Color pink with brisk capillary refill and palpable peripheral pulses. No edema noted. Per report, no urine since yesterday and no stool documented since 01/28/20. Bladder scan >460. Hypoactive bowel sounds over large, rounded, distended abdomen. Dr. Rick notified of lack of UO, bladder scan and BM not since 01/27. States pt needs urologist and that he had spoken to sister/DPOA. Ordered not to straight cath and proceed with planned discharge to [facility]. Transport on unit at approximately 0830. Called [facility] to give report and was placed on hold. [facility] then stated that per the DPOA the pt was not being admitted to their facility and was instead being transferred to a hospice house. Dr. Rick notified. Stated he was coming to hospital immediately and to ask to address discharge issue with DPBELINDA. DPOA called and transferred to LIZZ Miguel. LIZZ and Dr. Rick spoke with DPOA with plan to discharge to [facility] and have them seek care of urologist. Nurse manager rail Albaro Baum notified of plan, here seeking clarification. Per Dr. Rick, CHAITANYAOA decided to have pt. discharged and she would bring him to another hospital that could provide care by a urologist. Pt brought down to ER entrance and met Thu GUERRERO at her car accompanied by Mercedes Guthrie, [facility] director, Dr. Rick and CNO of hospital. Thu Harris articulated her plan to take her brother to another hospital when he could obtain care for bladder/urination issues. CNO then explained pt could be readmitted to [facility] on a medical floor until a hospital with urological services could accept him. DPOA consented in presence of all above that she preferred him being admitted to [facility] until a urology bed became available. Dr. Carey then spoke with Thu Harris and she agreed again to have him admitted to [facility]. Pt. moved to ER and placed in recliner. Ate approximately 50% of box lunch and drank 300 cc fluids being fed. Very little initiation with eating/drinking. Currently sleeping in recliner. Plan is to transfer to [facility] when a bed becomes available.
[2020-02-02 18:47] VITALS: BP 110/65
--- NOTE | 2020-02-03 14:26 | D ---
[facility] [place] [address] DISCHARGE SUMMARY Name: MARCELINO HARRIS Room #: 527B-B [facility] IN M.R.#: [id number] Admission: 01/24/20 Attend Phys: Juan Rick DO Discharge: 02/02/20 Date of : 60 Report #: [id number] THIS REPORT FOR: cc: DARIUSZ TAYLOR - Family physician unknown Juan Rick DO ~ THIS REPORT FOR: //name// CC: Juan RAO unknown DATE OF SERVICE: 02/02/2020 INPATIENT PSYCHIATRIC DISCHARGE SUMMARY ATTENDING PSYCHIATRIST: Juan Rick DO. PRODUCT MANUFACTURING PROFESSIONAL: Dr. Swain. DISCHARGE DIAGNOSES: Major neurocognitive disorder due to multiple etiologies, namely Alzheimer disease, early onset with contribution from alcoholism, at least adult onset. Medical comorbidities include urinary retention, benign prostatic hypertrophy, history of hypertension, currently treated on low-dose lisinopril, hyperlipidemia, thrombocytopenia, which is now resolved. The plan for this patient changed several times around his discharge today. Originally, he was to discharge to the [facility]. They were not willing to take him back. Then, his sister, Richy, wanted to take him to [facility] to have urologist see him in the Emergency Room and then at suggestion of hospital administration, she elected to have the patient discharged to the [address] [place] [address] for additional medical efforts here at [facility]. diet: regular DISCHARGE MEDICATIONS: Tamsulosin 0.8 mg p.o. daily at 2100 for urinary retention/outlet obstruction, chlorpromazine 50 mg oral at 0900, 1500, 2100 for impulsivity, agitation and combativeness. Famotidine 20 mg p.o. daily for GERD, finasteride 5 mg p.o. daily for BPH, Depakote Sprinkles 750 mg p.o. b.i.d. for impulsivity due to his dementia. Carvedilol 12.5 mg p.o. b.i.d., hold if systolic blood pressure is less than 100. Lisinopril 5 mg p.o. daily. Medication stopped this admission were Seroquel, thiamine, vitamin C, and [facility] [address] [place] [address] DISCHARGE SUMMARY Name: FAMILIA HARRISXAVIER Keene Room #: 527B-B [facility]#: [id number] Admission: 01/24/20 Attend Phys: Juan Rick DO Discharge: 02/02/20 Date of : 60 Report #: [id number] cyanocobalimin B12. The patient is a no code. ALLERGIES: ATORVASTATIN. LABORATORY DATA: Last set of labs at this admission were as follows: On 01/30/2020 for CBC: H and H 13.0 and 39.6, so they were up from 12.3 and 37.3 on 01/29/2020. White count up at 5.7 on the 01/30/2020 from 3.7 on the 01/29/2020. Platelet count 176. Chemistries from 01/30/2020, sodium 139, potassium 4.2, chloride 101, bicarbonate 32, anion gap 6, BUN 16, creatinine 0.8, estimated GFR 99, glucose 101, calcium 8.3, phosphorus 3.5, magnesium 2.0, total bilirubin 0.3, AST 48, ALT is 29, alkaline phosphatase 67, total protein 6.8, albumin 2.9. Most recent urinalysis from 01/31/2020, which was achieved by straight catheterization with an 18-Khmer coude. Abnormalities were trace protein, 1+ ketones, negative leukocyte esterase and negative glucose. No bacteria, leukocytes, erythrocytes seen. Toxicology is repeat Depakote level on 02/02/2020 was 56, previous one on 01/28/2020 was 52. COVID-19 PCR serology was as follows: He had a positive on 02/01/2020 which was expected as he had been positive as well on 01/18/2020. REASON FOR ADMISSION: The patient was readmitted on the 01/24/2020 due to ongoing care. He had originally been admitted to [facility] late December or early January for behavioral disturbance due to his dementia and became Covid 19 positive on Geriatric Psychiatry, so he was discharged to [facility] and then due to bed management he was readmitted to Geriatric Psychiatry, when we became a COVID Unit. HOSPITAL COURSE: The patient had variable improvement with his cares. He did develop urinary retention with bladder scans as high as 600 in terms of mL retain. We tended to evacuate less than the bladder scan was showing, that being said given the patient can become very combative with peers such as straight cathing and changing, I discontinued a Seroquel regimen, started him on chlorpromazine we were sealing it at 50 mg 3 times a day due to his blood pressure. Those readings were typically in the 120s to 130s up until 01/30/2020 and then we dipped down into the 95-105 range. PHYSICAL EXAMINATION: VITAL SIGNS: On day of discharge, temperature 98.0, pulse 100, respirations 17, BP 116/87, O2 saturation done yesterday evening was 98%. MUSCULOSKELETAL: He is nonambulatory, essentially wheelchair Amada chair bound. MENTAL STATUS EXAMINATION: This is a well-developed, ill-appearing male, appearing older than stated age. Attention limited. Concentration impaired. Speech, mute at times, at other times making unintelligible comments with any kind of force care is like a straight catheterization, he will curse at [facility] [address] [place] [address] DISCHARGE SUMMARY Name: MARCELINO HARRIS Room #: 527B-B [facility] IN M.R.#: [id number] Admission: 01/24/20 Attend Phys: Juan Rick DO Discharge: 02/02/20 Date of : 60 Report #: [id number] you, unable to assess well for SI, HI. No auditory, visual or tactile hallucinations. The patient is mostly though pleasantly confused. Mood and affect were constricted, congruent. Memory not formally tested and noted to be grossly impaired. Insight impaired, judgment impaired. Fund of knowledge well below average. Prognosis for this patient is guarded to poor. It should be noted on the day of discharge, I had an extensive discussion at the hospital with his DPOA and younger sister, Richy. She did express appreciation for efforts and I am in agreement with her. It would be desirable to get him evaluated from urologic standpoint before hospice care is assumed for him. I will be happy to follow this patient on , while he remains at [facility]. Time spent on discharge activities today were well in excess of 45 minutes including extensive telephone, [id number] conversation with his DPOA. <ELECTRONICALLY SIGNED> By: Juan Rick DO 02/03/20 1426 1152 1327 Juan Rick DO /nt
== END 2020-02-02 18:52 | disposition short-term general hospital (02) | DRG 56 ==
LOC: SBH
PROVIDERS: Hospitalist; Internal Medicine; ADMIT Psychiatry & Neurology Psychiatry; ATTEND Psychiatry & Neurology Psychiatry
DX: G30.9 Alzheimer's disease, unspecified (principal); F01.51 Vascular dementia, unspecified severity, with behavioral disturbance; U07.1 COVID-19; I11.0 Hypertensive heart disease with heart failure; N39.0 Urinary tract infection, site not specified; E46 Unspecified protein-calorie malnutrition; F02.81 Dementia in other diseases classified elsewhere, unspecified severity, with behavioral disturbance; I42.9 Cardiomyopathy, unspecified; D61.818 Other pancytopenia; N40.0 Benign prostatic hyperplasia without lower urinary tract symptoms; D69.6 Thrombocytopenia, unspecified; E78.5 Hyperlipidemia, unspecified; R33.9 Retention of urine, unspecified; I50.9 Heart failure, unspecified; R40.0 Somnolence; Z66 Do not resuscitate; Z88.8 Allergy status to other drugs, medicaments and biological substances; Z91.83 Wandering in diseases classified elsewhere; Z95.0 Presence of cardiac pacemaker; Z23 Encounter for immunization
CPT/HCPCS: 10880

== ENCOUNTER 2020-02-02 20:00 | Inpatient (IN) | payer OTHER ==
[~2020-02-02] VITALS: Ht 152.4 cm; Wt 100.2 kg
[~2020-02-02 20:00] MED LIST changes: +CHLORPROMAZINE25 M3 PO; +FINASTERIDE5 MG PO; +FLOMAX0.4 MG PO; +PEPCID20 MG PO
[2020-02-02 21:34] VITALS: BP 112/67
--- NOTE | 2020-02-02 21:52 | NUR ---
PT ADMITTED FROM ED. PT HAD BEEN ON [facility]. PT IS GROGGY, MUMBLED SPEECH NOT ABLE TO COMPREHEND. PT IS ABLE TO FOLLOW COMMANDS. SBA TWO PEOPLED NEEDED FROM CART TO BED. PT HAS REYES TO DD. PT HAS GOOD EYE CONTACT BLUNTED AFFECT. PT MED HX PACEMAKER, CHF, HTN, HLD, ALCOHOL ABUSE RELATED DEMENTIA. PT SINCE THIS ADMISSION HAS REPEATED ISSUES WITH URINARY RETENTION, AND NO BM. ABD IS DISTENDED FIRM AND BS DECREASED, DR TROTTER UPDATED THIS EVENING RE ABD. HE STATED HE WILL TALK WITH PROVIDER COURTESY CAR DRIVER REGARDING POSSIBLE CT. PT HAS A BEHAVIOR HISTORY OF COMBATIVENESS, AGGRESSION, WANDERING. BED ALARM ON. PT WATCHING TV AND INTERMITTENTLY SLEEPING.
[2020-02-03 04:20] VITALS: BP 98/60
[2020-02-03 06:23] LABS: CALCIUM 8.3 mg/dL (8.5-10.1); CREATININE 0.9 mg/dL (0.7-1.3); POTASSIUM 3.9 mmol/L (3.5-5.1)
[2020-02-03 07:38] VITALS: BP 103/60
[2020-02-03 13:08] LABS: HEMATOCRIT 39.5 % (42.0-52.0); HEMOGLOBIN 13.1 gm/dL (14.0-18.0); MCHC 33.1 g/dL (28.0-37.0); MCV 93.7 fL (80.0-100.0); RBC 4.21 mil/uL (4.50-6.00); RDW 13.4 % (10.5-14.5); WBC 6.6 thou/uL (4.0-11.0)
[2020-02-03 15:41] VITALS: BP 119/76
--- NOTE | 2020-02-03 16:08 | NUR ---
INITIAL ASSESSMENT: Consult received. SW reviewed chart and spoke with nursing and attending physician. Pt was admitted from [facility] and placed in Enhanced Isolation due to COVID-19. Pt had carter catheter placed yesterday. Recommendation made for pt to discharge back to his facility ([facility] ) and schedule outpatient urology appt. Attending physician spoke with pt's sister, Jackie, earlier today to provide update and discuss plan. Pt does not need to transfer to another hospital for urology evaluation. LIZZ spoke with pt's sister, Jackie, via phone. Introduced role of SW. Pt known to SW from prior stay on [facility]. Pt's sister has contacted [facility] to provide update. Pt is not able to return with a carter catheter, as they do not have an RN onsite 24 hours. Pt's family states they are able to provide private duty nursing care upon pt's return if facility would be agreeable. Pt's sister states that she is aware that pt will most likely need to be moved into a LTC facility for 24 hour supervision. [facility] SW had sent referrals to several facilities. Pt's sister states that family is interested in facilities in [facility]. Family has no preference of facility. Pt's sister states she will make calls over the weekend as well to see if she can find some options. Pt's first COVID positive test was 01/17. No weekend discharge planned.
--- NOTE | 2020-02-03 17:10 | NUR ---
PATIENT WAS AGITATIVE THIS AM. ATTEMPTED TO LEAVE BED AND KEPT ON ATTEMPTING TO PULL OUT CATH. HE IS QUITE CONFUSED. ORIENTED TO SELF. ENCOURAGED TO EAT AND DRINK. URINE OUT PUT HAS SIGNIFICANTL IMPROVED TODAY. WILL CONT WITH PLAN OF CARE.
[2020-02-03 20:05] VITALS: BP 111/78
--- NOTE | 2020-02-04 03:16 | NUR ---
Patient has progressed towards outcome goals. No COVID symptoms. Restless and combative with cares. Managed to pull IV out. Frequently tugging on carter catheter. Haldol and Lorazepam given, effect enough that patient does not sttempt to get out of bed. High fall risks, fall precautions in place. Attempts to restart IV unsuccessful, await IV team.
[2020-02-04 04:28] VITALS: BP 140/80
[2020-02-04 07:27] VITALS: BP 121/78
[2020-02-04 15:50] VITALS: BP 141/90
--- NOTE | 2020-02-04 16:19 | NUR ---
ASSUMED CARE APPROX 0700. PT ALERT AND ORIENTED TO SELF. PT CONFUSED AND IMPULSIVE. SPOKE TO DR. BLANTON THIS SHIFT REGARDING CONSULT. ROUTINE CT ORDERED, BUT NOT COMPLETED THIS SHIFT D/T RISK OF PT'S AGGRESSIVE BEHAVIOR. NOT MONITORED ON TELE. ON ROOM AIR W/O DISTRESS NOTED. PT'S SISTER, LORIN, UPDATED ON STATUS. WILL CONTINUE TO MONITOR.
[2020-02-04 19:16] VITALS: BP 175/82
--- NOTE | 2020-02-05 03:23 | NUR ---
Patient has progressed towards outcome goals. No CIVOD symptoms. Last positive COVID test 01/28/20. Remains restless, agitated and combative. Medicated with scheduled Haldol, PRN Haldol and Lorazepam with some relief. High fall risks, fall precautions in place.
[2020-02-05 03:34] VITALS: BP 112/76
--- NOTE | 2020-02-05 04:25 | NUR ---
Poor oral fluids and food intake. Unable to maintaing IV access as patient becomes agitated when attempting to start IV and when successful able to discontinue IV himself.
[2020-02-05 07:32] VITALS: BP 134/71
--- NOTE | 2020-02-05 16:51 | HC ---
[facility] [place] [address] CONSULTATION Name: MARCELINO HARRIS Room #: 352-P ADM IN M.R.#: [id number] Admission: 02/02/20 Attend Phys: Ronald Swain MD Discharge: Date of : 60 Report #: [id number] THIS REPORT FOR: cc: FAM - Family physician unknown FAM - Family physician unknown Juan Rick DO ~ DATE OF SERVICE: 02/03/2020 INPATIENT PSYCHIATRY C-L CONSULTATION PRIMARY ATTENDING: Ronald Swain MD CONSULTING PSYCHIATRIST: Juan Rick DO REASON FOR CONSULTATION: Continued management of end-stage multifactorial major neurocognitive disorder, also in the setting of acute urinary retention. SOURCES OF INFORMATION: Chart review, interview with the patient. CHIEF COMPLAINT: Unspecified. HISTORY OF PRESENT ILLNESS: This is a 59-year-old male well known to me from several recent admissions both on the [facility] and down here on the [address] [place] [address]. Unfortunately, the patient had become COVID positive roughly on 01/17 of this year. He has successfully completed formal isolation; however, starting on approximately the , he had noticeable difficulty urinating. He had several straight caths that were 450-500 mL and up or bladder scans that were showing the same. Yesterday, he had 900 mL evacuated and an indwelling Ramos was placed. The patient's sister, Richy is very involved. She would like the bladder emptying and urinary tract issue evaluated a bit more before she makes the decision on hospice. This morning, I saw this patient in his bed. He was resting while when I was entered in his room. Stated he was doing okay, did make a bit of small conversation with me. Stated he was hungry. The staff here on tried to feed him this morning and they were unsuccessful. His urinary output, which was last checked at quarter to 6 this morning, was 200 mL and that was emptied around 1900 last night. His intake during the same period is as follows. He took in 300 mL last night. No mL overnight, basically minimal this morning. Regarding his medication compliance, he did take finasteride with a cup of water, famotidine and Coreg. ADDITIONAL INFORMATION PAST MEDICAL HISTORY: Significant for major neurocognitive disorder, likely has been ongoing for 6-7 years from family report. Other disease process is that he [facility] [address] [place] [address] CONSULTATION Name: MARCELINO HARRIS Room #: 352-P [facility] IN M.R.#: [id number] Admission: 02/02/20 Attend Phys: Ronald Swain MD Discharge: Date of : 60 Report #: [id number] is treated for his hypertension. SURGICAL HISTORY: Does not have any history of prostate surgeries, otherwise pacemaker placement for sick sinus syndrome. Other medical problems noted and included hyperlipidemia, remote congestive heart failure. Has a significant history of alcoholism, particularly [id number] roughly after his . DEVELOPMENT HISTORY: He has end-stage dementia. REVIEW OF SYSTEMS: Unable to obtain review of systems. PHYSICAL EXAMINATION: The patient can stand and walk short distances. Shortly after I saw him, he did get up out of bed on his own, had to be escorted back to the bed. He has a high fall risk. MENTAL STATUS EXAMINATION: This is a well-developed, ill-appearing male actually appearing stated age. Attention was fair this morning. Consultation quite limited. Speech slightly slowed, normal volume, normal tone. Thought process: Linear and very limited fashion. Thought content: Poverty of thought in general, no psychomotor agitation, no psychomotor retardation. Denied SI or HI. I am unable to assess well for auditory, visual, or tactile hallucinations because I do not think the patient tolerates much degree of questioning. Mood and affect were congruent and euthymic. Fairly happy when I saw him. Memory is noted to be grossly impaired. Insight impaired, judgment impaired. Fund of knowledge well below average. FORMULATION: A 59-year-old male, now medically admitted for urinary retention, indwelling Ramos placed, history of major neurocognitive disorder due to multiple etiologies, early Alzheimer's and alcohol due to suspected factors. DIAGNOSES: At this time, major neurocognitive disorder due to multiple etiologies with behavioral disturbance and acute urinary retention. RECOMMENDATIONS: Given the patient had problems with Seroquel and chlorpromazine, I think we need to avoid anticholinergic and antimuscarinic drugs as much as possible. His urine output remains poor. I would like to try and keep to a minimum any antipsychotic medications. I think it is fine to continue Depakote at this time. I increased his p.r.n. Haldol 5 mg as needed and added 1 mg of IM Ativan. This can be given every 6 hours p.r.n. At this point if absolutely necessary to maintain his Ramos, restraints can be utilized, but ideally keeping him calm, entertained and supported. I will defer to the primary team infection control if his COVID precautions can be discontinued. Also further workup for his bladder and prostate including CT scan, [facility] [address] [place] [address] CONSULTATION Name: MARCELINO HARRIS Room #: 352-P ADM IN M.R.#: [id number] Admission: 02/02/20 Attend Phys: Ronald Swain MD Discharge: Date of : 60 Report #: [id number] urologic intervention deferred to the primary team to decide to pursue. I will follow along with you. There will be no C-L psychiatry coverage this weekend and I will plan to see the patient on Thursday, the if he is still in the hospital. Time spent on this was less than 45 minutes. <ELECTRONICALLY SIGNED> By: Juan Rick DO 02/05/20 [id number] Juan Rick DO /nt
--- NOTE | 2020-02-05 19:24 | NUR ---
PATIENT HAS STAYED IN BED THROUGH THE DAY. NO PRN ADMINISTERED SO FAR. HE IS ALERT TO SELF. ATE LESS THAN 25% OF ALL MEALS. WILL CONT WITH PLAN OF CARE.
[2020-02-05 19:53] VITALS: BP 142/92
[2020-02-06 04:58] VITALS: BP 113/70
--- NOTE | 2020-02-06 06:27 | NUR ---
Pt. slept most of the night. He has been calm and no agitation. Scheduled haldol given. Cont. on enhanced precaution , afebrile. Bed alarm on for safety.
[2020-02-06 08:13] VITALS: BP 117/67
--- NOTE | 2020-02-06 14:08 | NUR ---
ASSUMED PATIENT CARE THIS AM AT APPROXIMATELY 0700. PATIENT IS AWAKE, CONFUSED BUT PLEASANT THIS MORNING. PATIENT HAS POOR PO INTAKE, REFUSING TO EAT BREAKFAST WITH NURSE, ONLY AT A FEW BITES, NITROCELLULOSE OPERATOR REATTEMPTED ASSIST WITH FEEDING AND PATIENT ATE ABOUT 20% OF MEAL. LUNCH TIME PATIENT ONLY ATE ABOUT HALF OF A BAG OF CHIPS, VERY POOR FLUID INTAKE NOTED WELL. SPOKE WITH PATIENT MOTHER TO UPDATE ON STATUS AND MADE AWARE OF POOR INTAKE. PATIENT SEEN BY MD STATES WILL SPEAK WITH FAMILY REGARDING POSSIBLE PALLIAIVE CARE. CASE MANAGEMENT WORKING ON DISCHARGE PLANNING TO FACILITY THAT WILL ACCEPT PATIENT WITH REYES CATHETER. PATIENT URINE OUTPUT RUBI IN COLOR. STAT LOCK IN PLACE. PLACED BRIEF ON PATIENT TO DETER HIM FROM PULLING ON CATHETER THIS SHIFT. SEE I/O. PATIENT ASSISTED TO TURN IN BED Q2H. FREQUENT PO INTAKE OFFERED. VSS. SPOKE WITH REBECCA WILSON THIS SHIFT REGARDING DISCONTINUING ISOLATION PRECAUTIONS [facility] WILL OBTAIN ORDER FROM DR. ALICIA WHEN OK WITH HIM. AWAITING ORDERS.
[2020-02-06 15:48] VITALS: BP 123/75
--- NOTE | 2020-02-06 15:56 | NUR ---
LIZZ reviewed chart and spoke with nursing and attending physician. Pt remains in Enhanced Isolation. Neuro consulted. CT ordered. LI[facility] and left voice messages for the wellness program administrator, Jade, and the midwife and birth center owner, Deepak. LIZZ spoke with pt's sister, Jackie, via phone to discuss discharge. Pt's sister is hoping that the facility will accept pt back with the carter catheter in place. Pt's family is willing to pay privately for nursing care to assist with catheter care. Pt's sister has made calls to private duty agencies. SW also provided additional private duty options. Pt's sister is agreeable [facility] Pt's sister is open to any place that would be able to accept pt based on his needs. LIZZ discussed with attending physician. Requested therapy evals. Pt is on a calorie count starting today due to poor intake. Pt's sister to discuss hospice with her family. Pt would likely be able to return to [facility] with hospice services. LIZZ is following to assist as needed with discharge planning.
[2020-02-06 19:54] VITALS: BP 134/86
[2020-02-07 03:05] VITALS: BP 146/89
--- NOTE | 2020-02-07 07:35 | NUR ---
Pt. keeps getting out of bed and hard to redirect. Scheduled dose of haldol given and he eventuallly was assisted to lay back down on the bed. He slept some then he woke up this am doing the same thing and will not go back to bed. He stated he wants to go home. Also pulling on carter cath then verbalized it hurts. Haldol Im given with some help. He took meds crushed with pudding except flomax (can't be crushed)he spit it out. He drank a can of chelsea and finished eating the pudding. He takes small bites at a time. Cont. on enhanced precaution , he is afebrile. Frequently reoriented. Bed alarm on for safety.
[2020-02-07 07:47] VITALS: BP 104/88
--- NOTE | 2020-02-07 14:40 | NUR ---
assumed care of pt at 0700. pt aox1 confused impulsive. restless at times. difficult to redirect at times. refusing some care. continuously directed to not pull at carter. hospice eval today. danialm.
--- NOTE | 2020-02-07 15:53 | NUR ---
LIZZ reviewed chart and spoke with nursing and attending physician. Pt's family have decided to have pt return to the [facility] with hospice. LIZZ spoke with Mary, at [facility], who states that they use [facility] in their facility. Per Mary, they will need to have hospice evaluate pt and then they will decide if they are able to take pt back to their facility. [facility] depositing machine operator onsite to evaluate pt earlier today. LIZZ was unaware of the evaluation. [facility] had contacted [facility] for the evaluation. LIZZ notified pump house technician, as this was not scheduled by LIZZ. Nursing provided [facility] depositing machine operator with paperwork. LIZZ spoke with pt's sister, Jackie, via phone to provide update. Jackie is aware and agreeable with the hospice referral/evaluation. Pt's family is agreeable with hiring private duty care in addition to hospice services if needed. LIZZ spoke with Mary to follow up. Mary states they will need to discuss with the boilermaker mechanic of the building to see if they can meet pt's needs. LIZZ followed up with [facility] and spoke with Shad in intake. Per Shad, the hospice executive director stated pt is appropriate for hospice. Awaiting input from [facility] and [facility] regarding pt's acceptance back to the facility. LIZZ is following to assist as needed with discharge planning.
[2020-02-07 19:20] VITALS: BP 135/83
--- NOTE | 2020-02-07 22:39 | NUR ---
PT RESTING IN BED WATCHING TV. PT KICKING ARMS AND LEGS TANGLED IN BLANKETS, CALL LIGHT AND REYES. BED ALARM ON. PT COMPLIANT WITH MEDS, INITIALLY STATED HE DID NOT WANT TO EAT BUT AFTER BITE OF ICE CREAM STATED HE LIKED IT AND WANTED MORE. [facility] CONTACT, SPEECH CLEAR BUT STATEMENTS NOT RELATED TO TOPICS BEING DISCUSSED BY NURSE. PT RELAXES AND SAYS THANK YOU TO BEING COVERED BY WARM BLANKETS.
[2020-02-08 05:01] VITALS: BP 130/85
[2020-02-08 10:00] VITALS: BP 116/64
--- NOTE | 2020-02-08 14:50 | NUR ---
SW reviewed chart and spoke with nursing and attending physician. Enhanced Isolation precautions have been discontinued. Obtained approval from CN for hospice bedside eval. [facility] airplane coverer did bedside eval this morning and pt is accepted onto hospice services. DME to be delivered to [facility] tomorrow morning. LIZZ spoke with Mary at [facility], who states they are able to accept pt back tomorrow afternoon. Pt's family to provide private duty care for first 48 hours and then 12 hour shifts over the weekend. Pt has arranged for private duty care to start tomorrow at 1400. SW spoke with pt's sister, Jackie, via phone to provide update and discuss discharge plan. Pt's sister is aware and agreeable with plan. SW updated pt's sister regarding potential LTC placement if needed: [facility] and [facility] [place] are not accepting admissions at this time. [facility] unable to accept pt. [facility] and [facility] do not have any male LTC beds available. Pt's sister verbalized understanding and will continue to work on alternate placement with the staff at [facility] if needed. SW arranged ambulance transportation for 1400 for tomorrow afternoon. [facility] form and Outside the Hospital DNR form placed on pt's chart. Nursing will need to call report and final discharge orders/summary will need to be faxed to [facility] and [facility] when available. LIZZ is following to assist as needed with discharge planning. [facility]-- [facility]--
[2020-02-08 16:00] VITALS: BP 107/60
--- NOTE | 2020-02-08 16:48 | NUR ---
PATIENT WILL BE TRANSFERRED TO 4W THIS PM. HE IS ALERT ORIENTED TO SELF. DID ATTEMPT TO LEAVE BEDBUT EASILY REDIRECTED. DOES NOT SEEM TO BE IN PAIN. RESPIRATIONS ARE NON LABORED. WILL CONT WITH PLAN OF CARE.
[2020-02-08 17:15] VITALS: BP 122/76
[2020-02-08 19:49] VITALS: BP 132/86
--- NOTE | 2020-02-08 20:05 | NUR ---
Transferred from [facility] at 1800; transferred to room safely. Alert to self, impulsive at times. On room air. Vital signs stable. On regular diet- assisted and encouraged in eating and drinking. On MS, not on telemetry, no complains and signs of chest pain, crushing sensation and heaviness. With carter in place, output measured and recorded accordingly; pt trying to pull it out- informed patient and redirected. Falls bundle in place. No IV noted- physician aware. Possible discharge tomorrow. Frequent rounding done on patient due to impulsiveness. Assisted in ADLs. With pacemaker- Night RN informed. To continue monitoring patient.
--- NOTE | 2020-02-09 04:41 | NUR ---
PATIENT HAS BEEN IN ROOM ALL NIGHT BUT VERY RESTLESS AND UNDIRECTABLE. HE HAS CLIMBED OUT OF BED 4 OR 5 TIMES. PATIENT IS A/0X1 AND CONFUSED. HE HAS REYES CATHETER IN FOR URINE RETENTION ISSUES. PATIENT HAD SEVERAL ONE TIME ORDERS OF LORAZEPAM AND HALDOL TO TRY AND GET HIS BEHAVIORS UNDER CONTROL. PATIENT WAS TRYING TO STAND ON HIS BED AT ONE TIME. TRIED GETTING PATIENT UP TO SIT IN RECLINER BUT PATIENT UNABLE TO BE DIRECTED TO CHAIR AND WAS PLACED BACK IN BED. PATIENT DID HAVE LARGE SOFT BM TONIGHT. PATIENT KEEPS PULLING ON HIS REYES CATHETER AND MESSING WITH IT. HE HAS HAD SOME BLEEDING AROUND THE URETHRA FROM PULLING. REYES IS IN PLACE AND PATENT. PATIENT HAS TAKEN HIS MEDS WHOLE AND CRUSHED IN PUDDING TONIGHT. PATIENT NOT TAKING MUCH BY MOUTH AND DIFFICULT TO GET PO MEDS IN HIM. PATIENT HAS HAD WHAT APPEARS TO BE JERKING IN HIS SLEEP. DR AWARE OF THIS. PATIENT HAS NOT SLEPT MUCH TONIGHT BUT CURRENTLY IS LAYING STILL IN HIS BED WITH EYES CLOSED. PATIENT TO BE DISCHARGED TO HOSPICE TODAY. BED IN LOW POSITION AND BED ALARM IS ON. CONTINUING TO MONITOR.
[2020-02-09 08:00] VITALS: BP 121/97
[2020-02-09 09:40] VITALS: BP 121/97
[2020-02-09 09:45] VITALS: BP 121/97
[2020-02-09] MEDS ORDERED: LORAZEPAM I2 MG/1 ML PO (11:10)
[2020-02-09] MEDS ORDERED: HALOPERIDOL 1 MG1 MG PO (11:10)
--- NOTE | 2020-02-09 12:20 | NUR ---
ASSUMED PT CARE THIS AM. PT VSS, ALERT TO SELF. PT TOOK MEDS PO. REYES IN PLACE, SOME REDNESS AROUND PENIS DUE TO PULLING ON IT IN THE PREVIOUS SHIFT. PT DID NOT EAT BREAKFAST, SLEEPING CURRENTLY. FALL PRECAUTIONS IN PLACE. REPORT CALLED TO KIKA AT 1215.
--- NOTE | 2020-02-09 12:33 | NUR ---
PT IS TO DISCHARGE TO [facility] THIS DAY [facility]. [facility] ARRANGED FOR 1400. CM CALLED AND SPOKE WITH KIKA BUTLER AT [facility], AND CONFIRMED [facility] THIS AM. ALL ARE RAMOS AND AGREEABLE WITH DC AT 1400. PT IS TO HAVE PD SERVICES AT THE COMMUNITY FOR THE FIRST 48 HRS UPON HIS RETURN. CM CALLED AND SPOKE WITH PT'S DPOA SISTER WELL AND SHE IS AWARE AND AGREEABLE. CM FAXED DC ORDERS AND SUMMERY TO [facility] AND [facility]. NURSE MECHELLE CALLED REPORT. OUTSIDE THE HOSPITAL DNR AND [facility] FORM COMPLETED AND ARE TO BE SENT WITH THE PT. NO OTHER CM INTERVENTION INDICATED. CASE CLOSED.
== END 2020-02-09 14:57 | disposition hospice, home (50) | DRG 871 ==
LOC: 3W 20:00 → 4W 02-08 17:59
PROVIDERS: Nurse Practitioner Family; ADMIT Hospitalist; ATTEND Hospitalist
DX: A41.9 Sepsis, unspecified organism (principal); U07.1 COVID-19; G93.41 Metabolic encephalopathy; J96.20 Acute and chronic respiratory failure, unspecified whether with hypoxia or hypercapnia; F01.51 Vascular dementia, unspecified severity, with behavioral disturbance; N39.0 Urinary tract infection, site not specified; E46 Unspecified protein-calorie malnutrition; E44.0 Moderate protein-calorie malnutrition; F23 Brief psychotic disorder; Z68.41 Body mass index [BMI] 40.0-44.9, adult; G25.3 Myoclonus; I50.9 Heart failure, unspecified; I49.5 Sick sinus syndrome; E78.5 Hyperlipidemia, unspecified; R33.9 Retention of urine, unspecified; N40.1 Benign prostatic hyperplasia with lower urinary tract symptoms; R33.8 Other retention of urine; D69.6 Thrombocytopenia, unspecified; Z66 Do not resuscitate; L89.159 Pressure ulcer of sacral region, unspecified stage; G89.29 Other chronic pain; M54.9 Dorsalgia, unspecified; E87.6 Hypokalemia; E83.42 Hypomagnesemia; E11.43 Type 2 diabetes mellitus with diabetic autonomic (poly)neuropathy; K31.84 Gastroparesis; I11.0 Hypertensive heart disease with heart failure; E66.9 Obesity, unspecified; G30.9 Alzheimer's disease, unspecified; F02.80 Dementia in other diseases classified elsewhere, unspecified severity, without behavioral disturbance, psychotic disturbance, mood disturbance, and anxiety; F04 Amnestic disorder due to known physiological condition; Z88.8 Allergy status to other drugs, medicaments and biological substances; Z95.0 Presence of cardiac pacemaker; Z86.718 Personal history of other venous thrombosis and embolism; Z23 Encounter for immunization
CPT/HCPCS: 10047; 10779